=== PATIENT | male | born 1990 | race Caucasian/White ===

== ENCOUNTER 2017-11-16 21:12 | Emergency (ER) | payer OTHER, SELFPAY ==
[2017-11-16] MEDS ORDERED: KETOROLAC 30 MG/ML INJ ONE (22:43)
[2017-11-16 22:53] LABS: Absolute Monocytes 0.8 K/uL (0.1-1.3); Absolute Neutrophil 4.5 K/uL (1.8-8.0); Basophils % 0.6 % (0-1.3); Eosinophils % 2.8 % (0-4.4); Hematocrit 45.6 % (39.6-49.0); Lymphocytes % 26.4 % (15.3-44.8); MCH 28.7 pg (27.0-35.0); MCV 84.8 fL (80-100); MPV 8.6 fL (7.6-11.3); Monocytes % 10.6 % (3.3-12.3); RBC Red Blood Cell Count 5.38 M/uL (4.33-5.43)
[2017-11-16 23:12] LABS: ALT/SGPT 26 U/L (12-78); AST/SGOT 21 U/L (15-37); Albumin 3.7 g/dL (3.4-5.0); Alkaline Phosphatase 54 U/L (45-117); BUN Blood Urea Nitrogen 18 mg/dL (7-18); Bicarbonate 29 mmol/L (21-32); Bilirubin Direct < 0.1 mg/dL (0-0.2); Bilirubin Total 0.3 mg/dL (0.2-1.0); Glucose Level 79 mg/dL (74-106); Lipase 128 U/L (73-393); Potassium 3.9 mmol/L (3.5-5.1); Protein, Total 7.8 g/dL (6.4-8.2); Sodium Level 138 mmol/L (136-145)
[2017-11-16 23:50] LABS: Urine Blood NEGATIVE (NEG); Urine Glucose NEGATIVE (NEG); Urine Protein NEGATIVE (NEG); Urine Specific Gravity 1.025 (1.005-1.030)
--- NOTE | 2017-11-17 00:27 | EDPHYS ---
Physician Documentation [facility] Name: Will Hemphill Age: 27 yrs Sex: Male : 1990 Arrival Date: 11/16/2017 Time: 21:15 Bed 28 Private MD: Rohit Leyva T ED Physician Milo King HPI: 11/17 00:22 This 27 yrs old Male presents to ER via Ambulatory with complaints of pm1 Shoulder Pain. 00:22 The patient or guardian complains of pain. right scapular area. Context: The problem pm1 was sustained at home, resulted from possibly positioning while working on his car trunk with body twisted to work on the right side of the car. Onset: The symptoms/episode began/occurred 2 day(s) ago. Modifying factors: the symptoms are alleviated by OTC meds, Nsaids, The symptoms are aggravated by Flexion of trapezius muscles. Associated signs and symptoms: Pertinent negatives: abdominal pain, chest pain, numbness and tingling. nausea and vomiting. Treatment prior to arrival includes: over the counter medications, NSAIDS. The patient has not experienced similar symptoms in the past. The patient has not recently seen a physician. Patient reports pain in the area with deep breathing and occasionally with swallowing. Historical: - Allergies: 11/16 21:24 No Known Allergies; aj1 - Home Meds: 21:24 Diazepam Oral [Active]; aj1 - PMHx: 21:24 Anxiety; fractured L1; aj1 - PSHx: 21:24 Cholecystectomy; aj1 - Immunization history:: Flu vaccine is not up to date. - Social history:: Smoking status: Patient/guardian denies using tobacco. - Ebola Screening: : Patient denies travel to an Ebola-affected area in the 21 days before illness onset. ROS: 11/17 00:22 Constitutional: Negative for fever, chills, and weight loss, Eyes: Negative for injury, pm1 pain, redness, and discharge, ENT: Negative for injury, pain, and discharge, Neck: Negative for injury, pain, and swelling, Cardiovascular: Negative for chest pain, palpitations, and edema, Respiratory: Negative for shortness of breath, cough, wheezing, and pleuritic chest pain, Abdomen/GI: Negative for abdominal pain, nausea, vomiting, diarrhea, and constipation. : Negative for injury, bleeding, discharge, and swelling, MS/Extremity: Negative for injury and deformity, Skin: Negative for injury, rash, and discoloration, Neuro: Negative for headache, weakness, numbness, tingling, and seizure. Back: Positive for of the right subscapular area, Pain. Exam: 00:22 Constitutional: This is a well developed, well nourished patient who is awake, alert, pm1 and in no acute distress. Head/Face: Normocephalic, atraumatic. Neck: Trachea midline, no thyromegaly or masses palpated, and no cervical lymphadenopathy. Supple, full range of motion without nuchal rigidity, or vertebral point tenderness. No Meningismus. Chest/axilla: Normal chest wall appearance and motion. Nontender with no deformity. No lesions are appreciated. Cardiovascular: Regular rate and rhythm with a normal S1 and S2. No gallops, murmurs, or rubs. Normal PMI, no JVD. No pulse deficits. Respiratory: Lungs have equal breath sounds bilaterally, clear to auscultation and percussion. No rales, rhonchi or wheezes noted. No increased work of breathing, no retractions or nasal flaring. Abdomen/GI: Soft, non-tender, with normal bowel sounds. No distension or tympany. No guarding or rebound. No evidence of tenderness throughout. 00:22 Skin: Warm, dry with normal turgor. Normal color with no rashes, no lesions, and no evidence of cellulitis. MS/ Extremity: Pulses equal, no cyanosis. Neurovascular intact. Full, normal range of motion. 00:22 Back: ROM is normal, normal spinal alignment noted, Tenderness to right subscapular area with patient flexing trapezius muscles. 00:22 Neuro: Orientation: is normal, Motor: is normal, moves all fours, Gait: is steady, at a normal pace, without difficulty. Vital Signs: 11/16 21:24 BP 136 / 74; Pulse 68; Resp 18; Temp 98.1(TE); Pulse Ox 98% on R/A; Weight 105.23 kg aj1 (R); Height 6 ft. 3 in. (190.50 cm); Pain 06/08; 11/17 00:38 BP 124 / 73; Pulse 60; Resp 18; Pulse Ox 96% on R/A; mb3 11/16 21:24 Body Mass Index 29.00 (105.23 kg, 190.50 cm) aj1 MDM: 11/16 21:58 Patient medically screened. [facility] 11/17 00:25 Data reviewed: vital signs. Data interpreted: Pulse oximetry: on room air is 98 %. pm1 Interpretation: normal. Counseling: I had a detailed discussion with the patient and/or guardian regarding: the historical points, exam findings, and any diagnostic results supporting the discharge/admit diagnosis, lab results, the need for outpatient follow up, to return to the emergency department if symptoms worsen or persist or if there are any questions or concerns that arise at home. 11/16 22:31 Order name: Basic Metabolic Panel pm1 11/16 22:31 Order name: CBC with Diff; Complete Time: 00:16 pm1 11/16 22:31 Order name: Hepatic Function pm1 11/16 22:31 Order name: Lipase pm1 11/16 23:41 Order name: Urine Dipstick--Ancillary (enter results); Complete Time: 00:16 eb 11/16 22:31 Order name: IV Saline Lock; Complete Time: 22:44 pm1 11/16 22:31 Order name: Labs collected and sent; Complete Time: 22:44 pm1 11/16 22:31 Order name: Urine Dipstick-Ancillary (obtain specimen); Complete Time: 23:28 pm1 Administered Medications: 11/16 22:45 Drug: TORadol 30 mg Route: IVP; Site: left antecubital; mb3 11/17 00:37 Follow up: Response: No adverse reaction; Pain is decreased mb3 Disposition: 15:41 Co-signature as Attending Physician, Milo King MD I agree with the assessment and [facility] plan of care. Disposition: 11/17/17 00:26 Discharged to Home. Impression: Strain of muscle and tendon of back wall of thorax. - Condition is Stable. - Discharge Instructions: Muscle Strain. - Prescriptions for Cyclobenzaprine 10 mg Oral Tablet - take 1 tablet by ORAL route every 8 hours As needed; 30 tablet. - Medication Reconciliation Form, Thank You Letter form. - Follow up: Emergency Department; When: As needed; Reason: Worsening of condition. Follow up: Rohit Leyva MD; When: 2 - 3 days; Reason: Recheck today's complaints, Continuance of care, Re-evaluation by your physician. - Problem is new. - Symptoms have improved. Signatures: Dispatcher [employer] EDDestinee Coto RN RN aj1 Milo King MD MD cha Marinas, Patrick, APPLICATION ANALYST APPLICATION ANALYST pm1 Ganga Negro, RN RN mb3 Corrections: (The following items were deleted from the chart) 00:27 00:26 11/17/2017 00:26 Discharged to Home. Impression: Muscle spasm of back. Condition pm1 is Stable. Forms are Medication Reconciliation Form, Thank You Letter, Antibiotic Education, Prescription Opioid Use. Follow up: Emergency Department; When: As needed; Reason: Worsening of condition. Follow up: Rohit Leyva; When: 2 - 3 days; Reason: Recheck today's complaints, Continuance of care, Re-evaluation by your physician. Problem is new. Symptoms have improved. pm1 00:39 00:27 11/17/2017 00:26 Discharged to Home. Impression: Strain of muscle and tendon of mb3 back wall of thorax. Condition is Stable. Forms are Medication Reconciliation Form, Thank You Letter, Antibiotic Education, Prescription Opioid Use. Follow up: Emergency Department; When: As needed; Reason: Worsening of condition. Follow up: Rohit Leyva; When: 2 - 3 days; Reason: Recheck today's complaints, Continuance of care, Re-evaluation by your physician. Problem is new. Symptoms have improved. pm1
--- NOTE | 2017-11-17 00:27 | ER ---
Nurse's Notes [facility] Name: Will Hemphill Age: 27 yrs Sex: Male : 1990 Arrival Date: 11/16/2017 Time: 21:15 Bed 28 Private MD: Rohit Leyva T Diagnosis: Strain of muscle and tendon of back wall of thorax Presentation: 11/16 21:22 Presenting complaint: Patient states: Sharp pain the the right posterior shoulder aj1 that's worse when he takes a deep breath and swallows food since Tuesday. Denies any injury to the area. Full AROM to right shoulder. Transition of care: patient was not received from another setting of care. Onset of symptoms was November 14, 2017. Risk Assessment: Do you want to hurt yourself or someone else? Patient reports no desire to harm self or others. Initial Sepsis Screen: Does the patient meet any 2 criteria? No. Patient's initial sepsis screen is negative. Does the patient have a suspected source of infection? No. Patient's initial sepsis screen is negative. Care prior to arrival: None. 21:22 Method Of Arrival: Ambulatory aj1 21:22 Acuity: PABLO 3 aj1 Triage Assessment: 21:24 General: Appears in no apparent distress. comfortable, Behavior is calm, cooperative, aj1 appropriate for age. Pain: Complains of pain in posterior aspect of right shoulder Pain does not radiate. Pain currently is 1 out of 10 on a pain scale. at worst was 10 out of 10 on a pain scale. Quality of pain is described as sharp, Pain began 2-3 days ago. Is intermittent, Alleviated by nothing. Aggravated by swallowing and deep breathing. EENT: No signs and/or symptoms were reported regarding the EENT system. Neuro: Level of Consciousness is awake, alert, obeys commands, Oriented to person, place, time, situation, Gait is steady, Speech is normal, Facial symmetry appears normal. Cardiovascular: Patient's skin is warm and dry. Respiratory: Airway is patent Respiratory effort is even, unlabored, Respiratory pattern is regular, symmetrical, Denies cough, shortness of breath. GI: No signs and/or symptoms were reported involving the gastrointestinal system. : No signs and/or symptoms were reported regarding the genitourinary system. Derm: No signs and/or symptoms reported regarding the dermatologic system. Skin is pink, warm \T\ dry. normal. Musculoskeletal: Circulation, motion, and sensation intact. Capillary refill < 3 seconds, Range of motion: intact in all extremities, Reports shoulder pain. Historical: - Allergies: 21:24 No Known Allergies; aj1 - Home Meds: 21:24 Diazepam Oral [Active]; aj1 - PMHx: 21:24 Anxiety; fractured L1; aj1 - PSHx: 21:24 Cholecystectomy; aj1 - Immunization history:: Flu vaccine is not up to date. - Social history:: Smoking status: Patient/guardian denies using tobacco. - Ebola Screening: : Patient denies travel to an Ebola-affected area in the 21 days before illness onset. Screenin:40 Abuse screen: Denies threats or abuse. Nutritional screening: No deficits noted. mb3 Tuberculosis screening: No symptoms or risk factors identified. Fall Risk None identified. Assessment: 21:39 General: Appears in no apparent distress. comfortable, Behavior is calm, cooperative, mb3 appropriate for age. Pain: Complains of pain in right scapular area. Neuro: No deficits noted. Cardiovascular: No deficits noted. Respiratory: No deficits noted. Airway is patent Respiratory effort is even, unlabored, Respiratory pattern is regular, symmetrical, Breath sounds are clear bilaterally. GI: No deficits noted. No signs and/or symptoms were reported involving the gastrointestinal system. : No deficits noted. No signs and/or symptoms were reported regarding the genitourinary system. Derm: No deficits noted. No signs and/or symptoms reported regarding the dermatologic system. Musculoskeletal: No deficits noted. No signs and/or symptoms reported regarding the musculoskeletal system. Vital Signs: 21:24 BP 136 / 74; Pulse 68; Resp 18; Temp 98.1(TE); Pulse Ox 98% on R/A; Weight 105.23 kg aj1 (R); Height 6 ft. 3 in. (190.50 cm); Pain /; 11/17 00:38 BP 124 / 73; Pulse 60; Resp 18; Pulse Ox 96% on R/A; mb3 11/16 21:24 Body Mass Index 29.00 (105.23 kg, 190.50 cm) aj ED Course: 11/16 21:15 Patient arrived in ED. es 21:15 Rohit Leyva MD is Private Physician. es 21:23 Triage completed. aj1 21:24 Arm band placed on Patient placed in waiting room, Patient notified of wait time. aj1 21:31 Ganga Negro RN is Primary Nurse. mb3 21:42 Patient has correct armband on for positive identification. Bed in low position. Call mb3 light in reach. Side rails up X 1. 21:51 Servando Gibbs NP is PHCP. pm1 21:51 Milo King MD is Attending Physician. pm1 22:44 Inserted saline lock: 20 gauge in left antecubital area, using aseptic technique. Blood mt collected. 11/17 00:26 Rohit Leyva MD is Referral Physician. pm1 00:38 No provider procedures requiring assistance completed. IV discontinued, intact, mb3 bleeding controlled, No redness/swelling at site. Pressure dressing applied. Administered Medications: 11/16 22:45 Drug: TORadol 30 mg Route: IVP; Site: left antecubital; mb3 11/17 00:37 Follow up: Response: No adverse reaction; Pain is decreased mb3 Outcome: 00:26 Discharge ordered by MD. pm1 00:38 Discharged to home ambulatory. mb3 00:38 Condition: stable 00:38 Discharge instructions given to patient, Instructed on discharge instructions, follow up and referral plans. medication usage, Demonstrated understanding of instructions, follow-up care, medications, Prescriptions given X 1. 00:39 Patient left the ED. mb3 Signatures: Destinee Sawyer RN RN aj1 Nighat Carpenter Patrick, KIKI EXTRACTOR OPERATOR HELPER pm1 Patricia Mejía id Ganga Negro, RN RN mb3 Corrections: (The following items were deleted from the chart) 11/16 21:27 21:24 Pain: Complains of pain in posterior aspect of right shoulder Pain does not aj1 radiate. Pain Quality of pain is described as sharp, Pain began 2-3 days ago. Is intermittent, Alleviated by nothing. Aggravated by swallowing and deep breathing aj1
[2017-11-17 01:25] VITALS: TEMP 98.1
[2017-11-17 01:28] VITALS: BP 124/73; O2SAT 96
== END 2017-11-17 00:39 | disposition home or self-care (01) ==
LOC: ER 21:12
DX: S29.012A Strain of muscle and tendon of back wall of thorax, initial encounter (principal); X50.1XXA Overexertion from prolonged static or awkward postures, initial encounter; Y93.89 Activity, other specified; Y92.89 Other specified places as the place of occurrence of the external cause; Y99.8 Other external cause status
CPT/HCPCS: 36415; 80048; 80076; 81003; 83690; 85025; 96374; 99284

== ENCOUNTER 2019-01-08 16:45 | Emergency (ER) | payer SELFPAY ==
[2019-01-08] MEDS ORDERED: NA CHLORIDE 0.9% 2,000 ML ONE (17:41)
[2019-01-08] MEDS ORDERED: MORPHINE 4 MG/ML SYR ONE (17:41)
[2019-01-08] MEDS ORDERED: ONDANSETRON 4 MG/2 ML VIAL ONE ×2 (17:41→21:30)
[2019-01-08 17:52] LABS: Absolute Lymphocytes (CBC) 0.5 K/uL (0.7-4.9); Basophils % 0.1 % (0-1.3); Hematocrit 48.5 % (39.6-49.0); Lymphocytes % 5.3 % (15.3-44.8); MPV 8.7 fL (7.6-11.3)
[2019-01-08 18:13] LABS: Albumin 3.7 g/dL (3.4-5.0); Bilirubin Direct 0.1 mg/dL (0-0.2); Bilirubin Total 0.5 mg/dL (0.2-1.0); Potassium 3.9 mmol/L (3.5-5.1); Protein, Total 7.8 g/dL (6.4-8.2)
--- NOTE | 2019-01-08 19:09 | RAD REPORT ---
EXAM DESCRIPTION: RAD - Chest Single View - 01/08/2019 6:21 pm CLINICAL HISTORY: Abdominal pain, fever, abdominal distention COMPARISON: April 2016 TECHNIQUE: AP portable chest image was obtained 1821 hours . FINDINGS: Lungs are clear. Heart and vasculature are normal. No measurable pleural effusion and no p neumothorax. No acute bony abnormality seen. No acute aortic findings suspected. IMPRESSION: No acute cardiopulmonary process. No suspicious interval change.
[2019-01-08 19:18] LABS: Anisocytosis 1+; Blood Morphology Comment NOTED (NOT SEEN); Platelet Estimate ADEQ; Urine White Blood Cell Casts OK
[2019-01-08] MEDS ORDERED: NA CHLORIDE 0.9% 1,000 ML ONE (19:37)
[2019-01-08 19:55] LABS: Urine Blood NEGATIVE (NEG); Urine Glucose NEGATIVE (NEG); Urine Protein NEGATIVE (NEG); Urine pH 5.5 (5.0-7.0)
--- NOTE | 2019-01-08 20:22 | RAD REPORT ---
EXAM DESCRIPTION: CT - Abdomen Pelvis W Contrast - 01/08/2019 7:57 pm CLINICAL HISTORY: Abdominal pain, umbilical pain COMPARISON: CT imaging June 2015 TECHNIQUE: Biphasic, helical CT imaging of the abdomen and pelvis was performed following 100 ml non -ionic IV contrast. Oral contrast was given. All CT scans are performed using dose optimization technique as appropriate and may include automated exposure control or mA/KV adjustment according to patient size. FINDINGS: No suspicious findings in the lung bases. The liver, spleen, and pancreas show no suspicious findings. Cholecystectomy clips are present. No bi liary tree dilatation. Symmetric renal function is seen with no hydronephrosis or suspicious renal mass. No pyelonephritis o r acute parenchymal process. No bladder abnormalities. No adrenal abnormalities. No gastric dilatation or gastric wall thickening. Small bowel loops are not dilated. There are severa l loops of small bowel in the right mid abdomen that are prominent in size and show mild wall thicken ing. Pattern is consistent with a nonobstructive small bowel enteritis. There are few small [address] or less mesenteric lymph nodes in this region. Terminal ileum is not involved. No appendicitis fi ndings. No acute colon process. No free air, free fluid or pneumatosis. No focal inflammatory stranding. No hernia, mass or bulky lymphadenopathy. No suspicious bony findings. IMPRESSION: Small bowel enteritis pattern in the right mid abdomen. No appendicitis or emergent CT finding. No abnormality.
[2019-01-08] MEDS ORDERED: CIPROFLOXACIN 400mg IV 400 MG/200 ML BAG IV ONE (20:35)
[2019-01-08] MEDS ORDERED: metroNIDAZOLE 500 MG TABLET ONE (20:35)
--- NOTE | 2019-01-08 20:39 | ER ---
Nurse's Notes [facility] Name: Will Hemphill Age: 28 yrs Sex: Male : 1990 Arrival Date: 01/08/2019 Time: 16:51 Bed 7 Private MD: Rohit Leyva T Diagnosis: Abdominal tenderness;Diarrhea, unspecified-enteritis;Nausea Presentation: 01/08 16:52 Presenting complaint: Patient states: i started having bad stomach pain (umbilical hj area) and diarrhea; denies N/V; reports fever;. Transition of care: patient was not received from another setting of care. Onset of symptoms was January 08, 2019. Risk Assessment: Do you want to hurt yourself or someone else? Patient reports no desire to harm self or others. Initial Sepsis Screen: Does the patient meet any 2 criteria? No. Patient's initial sepsis screen is negative. Does the patient have a suspected source of infection? No. Patient's initial sepsis screen is negative. Care prior to arrival: None. 16:52 Method Of Arrival: Ambulatory 16:52 Acuity: PABLO 3 hj Historical: - Allergies: 16:54 No Known Drug Allergies; hj - Home Meds: 17:06 diazepam Oral [Active]; tw2 - PMHx: 16:54 Anxiety; fractured L1; hj - PSHx: 16:54 Cholecystectomy; hj - Immunization history:: Adult Immunizations. - Social history:: Smoking status: . - Ebola Screening: : Patient denies travel to an Ebola-affected area in the 21 days before illness onset. Screenin:06 Abuse screen: Denies threats or abuse. Nutritional screening: No deficits noted. tw2 Tuberculosis screening: No symptoms or risk factors identified. Fall Risk None identified. Assessment: 17:22 General: Appears in no apparent distress. well groomed, Behavior is calm, cooperative, tw2 appropriate for age. Pain: Complains of pain in umbilical area. Neuro: Level of Consciousness is awake, alert, obeys commands, Oriented to person, place, time, situation. Cardiovascular: Heart tones S1 S2 Patient's skin is warm and dry. Respiratory: Airway is patent Respiratory effort is even, unlabored, Respiratory pattern is regular, symmetrical, Breath sounds are clear bilaterally. GI: Bowel sounds present X 4 quads. Abd is soft X 4 quads Reports lower abdominal pain, upper abdominal pain, diarrhea, nausea, vomiting. : No signs and/or symptoms were reported regarding the genitourinary system. EENT: No signs and/or symptoms were reported regarding the EENT system. Derm: No signs and/or symptoms reported regarding the dermatologic system. Musculoskeletal: Range of motion: intact in all extremities. 18:07 Reassessment: Patient appears in no apparent distress at this time. No changes from tw2 previously documented assessment. Patient and/or family updated on plan of care and expected duration. Pain level reassessed. Patient is alert, oriented x 3, equal unlabored respirations, skin warm/dry/pink. 18:51 Reassessment: Patient appears in no apparent distress at this time. No changes from tw2 previously documented assessment. Patient and/or family updated on plan of care and expected duration. Pain level reassessed. Patient is alert, oriented x 3, equal unlabored respirations, skin warm/dry/pink. 20:38 General: Appears in no apparent distress. comfortable, well groomed, Behavior is calm, ak1 cooperative, appropriate for age. Pain: Denies pain. Neuro: Level of Consciousness is awake, alert, obeys commands, Oriented to person, place, time, situation, Moves all extremities. Gait is steady. Cardiovascular: No deficits noted. Respiratory: Airway is patent Respiratory effort is even, unlabored, Respiratory pattern is regular, symmetrical. GI: Bowel sounds present X 4 quads. Abd is soft X 4 quads Reports diarrhea, nausea. : No signs and/or symptoms were reported regarding the genitourinary system. EENT: No signs and/or symptoms were reported regarding the EENT system. Derm: No signs and/or symptoms reported regarding the dermatologic system. Musculoskeletal: Range of motion: intact in all extremities. 21:20 Reassessment: Pt reports increased nausea, provider notified, see MAR for orders. jb4 Vital Signs: 16:54 BP 138 / 66; Pulse 107; Resp 18; Temp 98.3(TE); Pulse Ox 98% on R/A; Weight 117.93 kg; hj Height 6 ft. 3 in. (190.50 cm); Pain 10/10; 18:03 BP 120 / 76; Pulse 83; Resp 17; Pulse Ox 99% on R/A; tw2 18:51 BP 128 / 79; Pulse 110; Resp 17; Pulse Ox 100% on R/A; tw2 19:30 BP 110 / 72; Pulse 109; Resp 16; Temp 98.3; Pulse Ox 100% on R/A; ak1 20:40 BP 119 / 77; Pulse 107; Resp 16; Temp 98.6; Pulse Ox 100% on R/A; Pain 0/10; ak1 16:54 Body Mass Index 32.50 (117.93 kg, 190.50 cm) ED Course: 16:51 Patient arrived in ED. ag5 16:51 Rohit Leyva MD is Private Physician. ag5 16:54 Triage completed. hj 16:54 Arm band placed on right wrist. hj 17:06 Bed in low position. Call light in reach. tw2 17:08 Milo King MD is Attending Physician. deya 17:16 Damaris Shaikh RN is Primary Nurse. tw2 17:47 Missed attempt(s): 22 gauge in right antecubital area. blood collected. tw2 17:49 Oral contrast given. nj 17:59 Initial lab(s) drawn, by me, sent to lab. Inserted saline lock: 20 gauge in right sg antecubital area, using aseptic technique. Blood collected. 18:25 Chest Single View XRAY In Process Unspecified. EDMS 19:08 Report given to ARTEMIO Weinberg - CT and urine outstanding at this time. tw2 19:57 CT completed. Patient tolerated procedure well. Patient moved back from CT. vm2 19:58 CT Abd/Pelvis - PO and IV Contrast In Process Unspecified. EDMS 20:38 Rohit Leyva MD is Referral Physician. deya 20:40 Awaiting: IV medications to infuse then pt can be discharged. ak1 20:41 No provider procedures requiring assistance completed. ak1 22:08 IV discontinued, intact, bleeding controlled, No redness/swelling at site. Pressure ak1 dressing applied. Administered Medications: 17:57 Drug: NS 0.9% 1000 ml Route: IV; Rate: 125 ml/hr; Site: right antecubital; tw2 22:09 Follow up: IV Status: Completed infusion ak1 17:58 Drug: morphine 4 mg Route: IVP; Site: right antecubital; tw2 18:30 Follow up: Response: No adverse reaction; Pain is decreased; RASS: Alert and Calm (0) tw2 17:58 Drug: Zofran 4 mg Route: IVP; Site: right antecubital; tw2 18:05 Follow up: Response: No adverse reaction tw2 17:59 Drug: NS 0.9% 1000 ml Route: IV; Rate: 1 bolus; Site: right antecubital; tw2 19:38 Follow up: IV Status: Completed infusion; IV Intake: 1000ml ak1 19:38 Drug: NS 0.9% 1000 ml Route: IV; Rate: 1 bolus; Site: right antecubital; ak1 20:37 Follow up: IV Status: Completed infusion; IV Intake: 1000ml ak1 20:37 Drug: Cipro 400 mg Volume: 200 ml; Route: IVPB; Infused Over: 60 mins; Site: right ak1 antecubital; 21:39 Follow up: Response: No adverse reaction; IV Status: Completed infusion; IV Intake: jb4 200ml 20:37 Drug: Flagyl 500 mg Route: PO; ak1 20:38 Follow up: Response: No adverse reaction ak1 21:34 Drug: Zofran 4 mg Route: IVP; Site: right antecubital; jb4 22:09 Follow up: Response: No adverse reaction; Nausea is decreased ak1 Intake: 19:38 IV: 1000ml; Total: 1000ml. ak1 20:37 IV: 1000ml; Total: 2000ml. ak1 21:39 IV: 200ml; Total: 2200ml. jb4 Outcome: 20:38 Discharge ordered by . deya 22:08 Discharged to home ambulatory, with family. ak1 22:08 Condition: good 22:08 Discharge instructions given to patient, family, Instructed on discharge instructions, follow up and referral plans. no drinking with medication, no driving heavy equipment, medication usage, Demonstrated understanding of instructions, follow-up care, medications, Prescriptions given X 4. 22:08 Patient left the ED. ak1 Signatures: Dispatcher [employer] EDMS Omar Camp RN RN sg Anderson, Corey, MD MD cha Krenek, Amber RN RN ak1 Demarco Medina RN RN hj Wise, Tara, RN RN tw2 Saeid Neff RN RN jb4 Jacinto Olivas Victoria Blade Morgan [facility] Corrections: (The following items were deleted from the chart) 16:55 16:54 Pulse 107bpm; Resp 18bpm; Pulse Ox 98% RA; Temp 98.3F Temporal; 117.93 kg; Height hj 6 ft. 3 in.; BMI: 32.5; Pain 03/08; hj
--- NOTE | 2019-01-08 20:40 | EDPHYS ---
Physician Documentation [facility] Name: Will Hemphill Age: 28 yrs Sex: Male : 1990 Arrival Date: 01/08/2019 Time: 16:51 Bed 7 Private MD: Rohit Leyva T ED Physician Milo King HPI: 01/08 17:34 This 28 yrs old Male presents to ER via Ambulatory with complaints of deya Abdominal Pain, Nausea. 17:34 The patient presents to the emergency department with nausea, diarrhea, abdominal pain, deya of the right upper quadrant, left upper quadrant, right lower quadrant and left lower quadrant. Onset: The symptoms/episode began/occurred this morning, today. Possible causes: unknown. The symptoms are aggravated by nothing. The symptoms are alleviated by nothing. Associated signs and symptoms: The patient has no apparent associated signs or symptoms. Severity of symptoms: At their worst the symptoms were moderate in the emergency department the symptoms are unchanged. The patient has not experienced similar symptoms in the past. Historical: - Allergies: 16:54 No Known Drug Allergies; hj - Home Meds: 17:06 diazepam Oral [Active]; tw2 - PMHx: 16:54 Anxiety; fractured L1; hj - PSHx: 16:54 Cholecystectomy; hj - Immunization history:: Adult Immunizations. - Social history:: Smoking status: . - Ebola Screening: : Patient denies travel to an Ebola-affected area in the 21 days before illness onset. ROS: 17:34 Constitutional: Negative for fever, chills, and weight loss, Eyes: Negative for injury, deya pain, redness, and discharge, ENT: Negative for injury, pain, and discharge, Neck: Negative for injury, pain, and swelling, Cardiovascular: Negative for chest pain, palpitations, and edema, Respiratory: Negative for shortness of breath, cough, wheezing, and pleuritic chest pain, Back: Negative for injury and pain, : Negative for injury, bleeding, discharge, and swelling, MS/Extremity: Negative for injury and deformity, Skin: Negative for injury, rash, and discoloration, Neuro: Negative for headache, weakness, numbness, tingling, and seizure, Psych: Negative for depression, anxiety, suicide ideation, homicidal ideation, and hallucinations, Allergy/Immunology: Negative for hives, rash, and allergies, Endocrine: Negative for neck swelling, polydipsia, polyuria, polyphagia, and marked weight changes, Hematologic/Lymphatic: Negative for swollen nodes, abnormal bleeding, and unusual bruising. 17:34 Abdomen/GI: Positive for abdominal pain, nausea, diarrhea, of the suprapubic area, right upper quadrant, left upper quadrant, right lower quadrant and left lower quadrant. Exam: 17:34 Constitutional: This is a well developed, well nourished patient who is awake, alert, deya and in no acute distress. Head/Face: Normocephalic, atraumatic. Eyes: Pupils equal round and reactive to light, extra-ocular motions intact. Lids and lashes normal. Conjunctiva and sclera are non-icteric and not injected. Cornea within normal limits. Periorbital areas with no swelling, redness, or edema. ENT: Nares patent. No nasal discharge, no septal abnormalities noted. Tympanic membranes are normal and external auditory canals are clear. Oropharynx with no redness, swelling, or masses, exudates, or evidence of obstruction, uvula midline. Mucous membranes moist. Neck: Trachea midline, no thyromegaly or masses palpated, and no cervical lymphadenopathy. Supple, full range of motion without nuchal rigidity, or vertebral point tenderness. No Meningismus. Chest/axilla: Normal chest wall appearance and motion. Nontender with no deformity. No lesions are appreciated. Cardiovascular: Regular rate and rhythm with a normal S1 and S2. No gallops, murmurs, or rubs. Normal PMI, no JVD. No pulse deficits. Respiratory: Lungs have equal breath sounds bilaterally, clear to auscultation and percussion. No rales, rhonchi or wheezes noted. No increased work of breathing, no retractions or nasal flaring. Back: No spinal tenderness. No costovertebral tenderness. Full range of motion. Skin: Warm, dry with normal turgor. Normal color with no rashes, no lesions, and no evidence of cellulitis. MS/ Extremity: Pulses equal, no cyanosis. Neurovascular intact. Full, normal range of motion. Neuro: Awake and alert, GCS 15, oriented to person, place, time, and situation. Cranial nerves II-XII grossly intact. Motor strength 5/5 in all extremities. Sensory grossly intact. Cerebellar exam normal. Normal gait. Psych: Awake, alert, with orientation to person, place and time. Behavior, mood, and affect are within normal limits. 17:34 Abdomen/GI: Inspection: abdomen appears normal, Bowel sounds: normal, Palpation: moderate abdominal tenderness, in the right upper quadrant, left upper quadrant, right lower quadrant and left lower quadrant, Liver: no appreciated palpable abnormalities, Hernia: not appreciated. Vital Signs: 16:54 BP 138 / 66; Pulse 107; Resp 18; Temp 98.3(TE); Pulse Ox 98% on R/A; Weight 117.93 kg; hj Height 6 ft. 3 in. (190.50 cm); Pain 10/10; 18:03 BP 120 / 76; Pulse 83; Resp 17; Pulse Ox 99% on R/A; tw2 18:51 BP 128 / 79; Pulse 110; Resp 17; Pulse Ox 100% on R/A; tw2 19:30 BP 110 / 72; Pulse 109; Resp 16; Temp 98.3; Pulse Ox 100% on R/A; ak1 20:40 BP 119 / 77; Pulse 107; Resp 16; Temp 98.6; Pulse Ox 100% on R/A; Pain 0/10; ak1 16:54 Body Mass Index 32.50 (117.93 kg, 190.50 cm) hj MDM: 17:08 Patient medically screened. [facility] 17:34 Data reviewed: vital signs, nurses notes, lab test result(s), EKG, radiologic studies, [facility] CT scan, plain films. 01/08 17:34 Order name: Basic Metabolic Panel [facility] 01/08 17:34 Order name: CBC with Diff [facility] 01/08 17:34 Order name: Creatinine for Radiology; Complete Time: 18:29 [facility] 01/08 17:34 Order name: Hepatic Function; Complete Time: 18:29 [facility] 01/08 17:34 Order name: Lipase; Complete Time: 18:29 [facility] 01/08 17:34 Order name: Urine Culture [facility] 01/08 17:34 Order name: Chest Single View XRAY; Complete Time: 19:19 [facility] 01/08 17:34 Order name: CT Abd/Pelvis - PO and IV Contrast; Complete Time: 20:25 [facility] 01/08 17:36 Order name: Basic Metabolic Panel; Complete Time: 18:29 [facility] 01/08 17:36 Order name: CBC with Automated Diff; Complete Time: 19:20 [facility] 01/08 18:11 Order name: CBC Smear Scan; Complete Time: 19:20 [facility] 01/08 19:46 Order name: Urine Dipstick--Ancillary (enter results); Complete Time: 20:25 ag4 01/08 17:34 Order name: IV Saline Lock; Complete Time: 17:59 deya 01/08 17:34 Order name: Labs collected and sent; Complete Time: 17:48 deya 01/08 17:34 Order name: Urine Dipstick-Ancillary (obtain specimen); Complete Time: 19:27 [facility] Administered Medications: 17:57 Drug: NS 0.9% 1000 ml Route: IV; Rate: 125 ml/hr; Site: right antecubital; tw2 22:09 Follow up: IV Status: Completed infusion ak1 17:58 Drug: morphine 4 mg Route: IVP; Site: right antecubital; tw2 18:30 Follow up: Response: No adverse reaction; Pain is decreased; RASS: Alert and Calm (0) tw2 17:58 Drug: Zofran 4 mg Route: IVP; Site: right antecubital; tw2 18:05 Follow up: Response: No adverse reaction tw2 17:59 Drug: NS 0.9% 1000 ml Route: IV; Rate: 1 bolus; Site: right antecubital; tw2 19:38 Follow up: IV Status: Completed infusion; IV Intake: 1000ml ak1 19:38 Drug: NS 0.9% 1000 ml Route: IV; Rate: 1 bolus; Site: right antecubital; ak1 20:37 Follow up: IV Status: Completed infusion; IV Intake: 1000ml ak1 20:37 Drug: Cipro 400 mg Volume: 200 ml; Route: IVPB; Infused Over: 60 mins; Site: right ak1 antecubital; 21:39 Follow up: Response: No adverse reaction; IV Status: Completed infusion; IV Intake: jb4 200ml 20:37 Drug: Flagyl 500 mg Route: PO; ak1 20:38 Follow up: Response: No adverse reaction ak1 21:34 Drug: Zofran 4 mg Route: IVP; Site: right antecubital; jb4 22:09 Follow up: Response: No adverse reaction; Nausea is decreased ak1 Disposition: 01/08/19 20:38 Discharged to Home. Impression: Abdominal tenderness, Diarrhea, unspecified - enteritis, Nausea. - Condition is Stable. - Discharge Instructions: Abdominal Pain, Adult, Diarrhea, Adult, Nausea and Vomiting, Adult, Nausea, Adult, Abdominal Pain, Adult, [id number], Diarrhea, Adult, [id number]. - Prescriptions for Bentyl 20 mg Oral Tablet - take 1 tablet by ORAL route every 6 hours As needed; 20 tablet. Flagyl 500 mg Oral Tablet - take 1 tablet by ORAL route every 8 hours for 7 days; 21 tablet. Zofran 4 mg Oral Tablet - take 1 tablet by ORAL route every 12 hours As needed; 20 tablet. Cipro 500 mg Oral Tablet - take 1 tablet by ORAL route every 12 hours for 7 days; 14 tablet. - Medication Reconciliation Form, Thank You Letter, Antibiotic Education, Prescription Opioid Use form. - Follow up: Rohit Leyva; When: 2 - 3 days; Reason: Recheck today's complaints, Continuance of care, Re-evaluation by your physician. - Problem is new. - Symptoms have improved. Signatures: Dispatcher [employer] EDMS Milo King MD MD cha Krenek, Amber, RN RN ak1 Demarco Medina, RN RN hj Damaris Shaikh, RN RN tw2 Saeid Neff, RN RN jb4 Corrections: (The following items were deleted from the chart) 22:08 20:38 01/08/2019 20:38 Discharged to Home. Impression: Abdominal tenderness; Diarrhea, ak1 unspecified - enteritis; Nausea. Condition is Stable. Discharge Instructions: Abdominal Pain, Adult, Diarrhea, Adult, Nausea and Vomiting, Adult, Nausea, Adult, Abdominal Pain, Adult, [id number], Diarrhea, Adult, [id number]. Prescriptions for Bentyl 20 mg Oral Tablet - take 1 tablet by ORAL route every 6 hours As needed; 20 tablet, Flagyl 500 mg Oral Tablet - take 1 tablet by ORAL route every 8 hours for 7 days; 21 tablet, Zofran 4 mg Oral Tablet - take 1 tablet by ORAL route every 12 hours As needed; 20 tablet, Cipro 500 mg Oral Tablet - take 1 tablet by ORAL route every 12 hours for 7 days; 14 tablet. and Forms are Medication Reconciliation Form, Thank You Letter, Antibiotic Education, Prescription Opioid Use. Follow up: Rohit Leyva; When: 2 - 3 days; Reason: Recheck today's complaints, Continuance of care, Re-evaluation by your physician. Problem is new. Symptoms have improved. deya
[2019-01-09 01:48] VITALS: O2SAT 100
[2019-01-09 01:50] VITALS: BP 119/77; TEMP 98.6
== END 2019-01-08 22:08 | disposition home or self-care (01) ==
LOC: ER 16:45
DX: R19.7 Diarrhea, unspecified (principal); R11.0 Nausea; F41.9 Anxiety disorder, unspecified
CPT/HCPCS: 36415; 71045; 74177; 80048; 80076; 81003; 83690; 85025; 87086; 87088; 96361; 96365; 96375; 99284; J0744; J2405; J7030; Q9967

== ENCOUNTER 2020-03-25 17:19 | Emergency (ER) | payer SELFPAY ==
[2020-03-25 19:59] LABS: Absolute Lymphocytes (CBC) 1.9 K/uL (0.7-4.9); Basophils % 0.8 % (0-1.3); Lymphocytes % 29.4 % (15.3-44.8); MPV 8.9 fL (7.6-11.3); RBC Red Blood Cell Count 5.59 M/uL (4.33-5.43)
[2020-03-25] MEDS ORDERED: NA CHLORIDE 0.9% 2,000 ML ONE (19:59)
[2020-03-25 20:09] LABS: Urine Blood NEGATIVE (NEG); Urine Glucose NEGATIVE (NEG); Urine Protein NEGATIVE (NEG); Urine Specific Gravity 1.015 (1.005-1.030)
[2020-03-25 20:14] LABS: ALT/SGPT 26 U/L (12-78); AST/SGOT 17 U/L (15-37); Alkaline Phosphatase 56 U/L (45-117); BUN Blood Urea Nitrogen 12 mg/dL (7-18); Bicarbonate 27 mmol/L (21-32); Bilirubin Direct < 0.1 mg/dL (0-0.2); Bilirubin Total 0.3 mg/dL (0.2-1.0); Glucose Level 80 mg/dL (74-106); Lipase 109 U/L (73-393); Potassium 3.9 mmol/L (3.5-5.1); Protein, Total 8.3 g/dL (6.4-8.2); Sodium Level 141 mmol/L (136-145)
--- NOTE | 2020-03-25 20:24 | RAD REPORT ---
EXAM DESCRIPTION: CTAbdomen Pelvis W Contrast - 03/25/2020 8:10 pm CLINICAL HISTORY: Abdominal pain. ABD PAIN COMPARISON: Abdomen Pelvis W Contrast dated 01/08/2019; CT ABD PELVIS W CONTRAST dated 07/26/2015 TECHNIQUE: Biphasic CT imaging of the abdomen and pelvis was performed with 100 ml non-ionic IV cont rast. All CT scans are performed using dose optimization technique as appropriate and may include automated exposure control or mA/KV adjustment according to patient size. FINDINGS: The lung bases are clear.Cholecystectomy clips. The liver, spleen, pancreas, adrenal glands and kidneys are within normal limits. No bowel obstruction, free air, free fluid or abscess. The appendix is normal. No evidence of signi ficant lymphadenopathy. No suspicious bony findings. IMPRESSION: No acute intra-abdominal or pelvic finding.
--- NOTE | 2020-03-25 20:55 | EDPHYS ---
Physician Documentation [facility] Name: Will Hemphill Age: 29 yrs Sex: Male : 1990 Arrival Date: 03/25/2020 Time: 17:25 Bed 17 Private MD: ED Physician Konrad Hanley HPI: 03/25 19:38 This 29 yrs old Male presents to ER via Ambulatory with complaints of pkl Abdominal Pain, Back Pain. 19:38 The patient presents with pain that is acute. pkl 19:38 The patient presents with abdominal pain in the upper abdomen. Onset: The pkl symptoms/episode began/occurred today. The symptoms do not radiate. Associated signs and symptoms: Pertinent positives: diarrhea, nausea. Patient said he has been having abdominal pain off and on for 6 months. Historical: - Allergies: 17:49 No Known Allergies; ca1 - Home Meds: 17:49 diazepam 10 mg oral tab 1 tab as needed [Active]; dicyclomine 20 mg Oral tab 1 tab ca1 twice a day [Active]; - PMHx: 17:49 Anxiety; fractured L1; ca1 - PSHx: 17:49 Cholecystectomy; ca1 - Immunization history:: Adult Immunizations up to date, Flu vaccine is not up to date. It has been more than one year since last vaccine. - Social history:: Smoking status: Patient denies any tobacco usage or history of. ROS: 19:38 Eyes: Negative for injury, pain, redness, and discharge, ENT: Negative for injury, pkl pain, and discharge, Neck: Negative for injury, pain, and swelling, Cardiovascular: Negative for chest pain, palpitations, and edema, Respiratory: Negative for shortness of breath, cough, wheezing, and pleuritic chest pain. 19:38 Abdomen/GI: Positive for abdominal pain, nausea, diarrhea, of the right upper quadrant and left upper quadrant. 19:38 Back: Negative for acute changes. 19:38 : Positive for urinary symptoms, urinary frequency. 19:38 MS/extremity: Negative for acute changes. 19:38 Skin: Negative for rash. 19:38 Neuro: Negative for altered mental status. Exam: 19:38 Head/Face: Normocephalic, atraumatic. Eyes: Pupils equal round and reactive to light, pkl extra-ocular motions intact. Lids and lashes normal. Conjunctiva and sclera are non-icteric and not injected. Cornea within normal limits. Periorbital areas with no swelling, redness, or edema. ENT: Nares patent. No nasal discharge, no septal abnormalities noted. Tympanic membranes are normal and external auditory canals are clear. Oropharynx with no redness, swelling, or masses, exudates, or evidence of obstruction, uvula midline. Mucous membranes moist. Neck: Trachea midline, no thyromegaly or masses palpated, and no cervical lymphadenopathy. Supple, full range of motion without nuchal rigidity, or vertebral point tenderness. No Meningismus. Chest/axilla: Normal chest wall appearance and motion. Nontender with no deformity. No lesions are appreciated. Cardiovascular: Regular rate and rhythm with a normal S1 and S2. No gallops, murmurs, or rubs. Normal PMI, no JVD. No pulse deficits. Respiratory: Lungs have equal breath sounds bilaterally, clear to auscultation and percussion. No rales, rhonchi or wheezes noted. No increased work of breathing, no retractions or nasal flaring. Back: No spinal tenderness. No costovertebral tenderness. Full range of motion. Skin: Warm, dry with normal turgor. Normal color with no rashes, no lesions, and no evidence of cellulitis. MS/ Extremity: Pulses equal, no cyanosis. Neurovascular intact. Full, normal range of motion. Neuro: Awake and alert, GCS 15, oriented to person, place, time, and situation. Cranial nerves II-XII grossly intact. Motor strength 5/5 in all extremities. Sensory grossly intact. Cerebellar exam normal. Normal gait. 19:38 Abdomen/GI: Bowel sounds: normal, Palpation: soft, in the right upper quadrant and left upper quadrant, mild abdominal tenderness. Vital Signs: 17:43 BP 143 / 87; Pulse 82; Resp 16 S; Temp 97.3(TE); Pulse Ox 99% on R/A; Weight 117.93 kg ca1 (R); Height 6 ft. 3 in. (190.50 cm) (R); Pain 4/10; 20:20 BP 130 / 78; Pulse 80; Resp 18; Temp 98; Pulse Ox 100% on R/A; mg2 21:15 BP 134 / 78; Pulse 80; Resp 18; Temp 98; Pulse Ox 100% on R/A; Pain 0/10; mg2 17:43 Body Mass Index 32.50 (117.93 kg, 190.50 cm) ca1 MDM: 19:23 Patient medically screened. pkl 20:50 Data reviewed: vital signs, nurses notes, lab test result(s), radiologic studies, CT pkl scan. ED course: Discussed lab and CT Scans result with patient. Advised to follow up with [facility] specialist for further evaluations. Patient understood instructions. 03/25 18:07 Order name: Glucose, Ancillary Testing; Complete Time: 20:41 EDMS 03/25 18:57 Order name: Urine Dipstick--Ancillary (enter results); Complete Time: 20:41 bd 03/25 19:31 Order name: Basic Metabolic Panel; Complete Time: 20:41 mg2 03/25 19:31 Order name: CBC with Diff; Complete Time: 20:41 mg2 03/25 19:31 Order name: Hepatic Function; Complete Time: 20:41 mg2 03/25 19:31 Order name: Lipase; Complete Time: 20:41 mg2 03/25 19:31 Order name: IV Saline Lock; Complete Time: 19:44 mg2 03/25 19:31 Order name: Labs collected and sent; Complete Time: 19:44 mg2 03/25 19:31 Order name: Urine Dipstick-Ancillary (obtain specimen); Complete Time: 19:44 mg2 03/25 19:37 Order name: CT Abd/Pelvis - IV Contrast Only; Complete Time: 20:41 pkl Administered Medications: 19:52 Drug: NS 0.9% 1000 ml Route: IV; Rate: 1 bolus; Site: right antecubital; mg2 21:20 Not Given (Physician Discretion): NS 0.9% 1000 ml IV at 125 ml/hr continuous mg2 Disposition: 03/25/20 20:54 Discharged to Home. Impression: Addominal pain. - Condition is Stable. - Medication Reconciliation Form, Thank You Letter, Antibiotic Education, Prescription Opioid Use form. - Follow up: Private Physician; When: 1 week; Reason: Re-evaluation by your physician. Signatures: Dispatcher [employer] EDND Konrad Hanley MD MD pkl Adria Oliver RN RN mg2 Dolores Mullins RN RN ca1 Corrections: (The following items were deleted from the chart) 21:26 20:54 03/25/2020 20:54 Discharged to Home. Impression: Addominal pain. Condition is mg2 Stable. Forms are Medication Reconciliation Form, Thank You Letter, Antibiotic Education, Prescription Opioid Use. Follow up: Private Physician; When: 1 week; Reason: Re-evaluation by your physician. pkl
--- NOTE | 2020-03-25 20:55 | ER ---
Nurse's Notes [facility] Name: Will Hemphill Age: 29 yrs Sex: Male : 1990 Arrival Date: 03/25/2020 Time: 17:25 Bed 17 Private MD: Diagnosis: Addominal pain Presentation: 03/25 17:43 Chief complaint: Patient states: Started around August 2019, lower abdominal pain and on ca1 and off diarrhea. But today, abdominal pain has gotten worse and now at the upper quadrants and epigastric area, nausea and tightness of the throat with difficulty swallowing. Reports increased thirst, urinary frequency and urgency x 1 month. Denies burning with urination. Denies fever. R lower back pain started Tuesday. Coronavirus screen: Client denies travel out of the [place] in the last 14 days. nausea, Client presents with at least one sign or symptom that may indicate coronavirus-19. Standard/surgical mask placed on the client. Provider contacted for isolation considerations. The client denies any previous COVID testing. Ebola Screen: Patient negative for fever greater than or equal to 101.5 degrees Fahrenheit, and additional compatible Ebola Virus Disease symptoms Patient denies exposure to infectious person. Patient denies travel to an Ebola-affected area in the 21 days before illness onset. No symptoms or risks identified at this time. Initial Sepsis Screen: Does the patient meet any 2 criteria? No. Patient's initial sepsis screen is negative. Does the patient have a suspected source of infection? No. Patient's initial sepsis screen is negative. Risk Assessment: Do you want to hurt yourself or someone else? Patient reports no desire to harm self or others. Onset of symptoms. 17:43 Method Of Arrival: Ambulatory ca1 17:43 Acuity: PABLO 3 ca1 Historical: - Allergies: 17:49 No Known Allergies; ca1 - Home Meds: 17:49 diazepam 10 mg oral tab 1 tab as needed [Active]; dicyclomine 20 mg Oral tab 1 tab ca1 twice a day [Active]; - PMHx: 17:49 Anxiety; fractured L1; ca1 - PSHx: 17:49 Cholecystectomy; ca1 - Immunization history:: Adult Immunizations up to date, Flu vaccine is not up to date. It has been more than one year since last vaccine. - Social history:: Smoking status: Patient denies any tobacco usage or history of. Screenin:10 Abuse screen: Denies threats or abuse. Denies injuries from another. Abuse screen: mg2 Denies threats or abuse. Nutritional screening: No deficits noted. Tuberculosis screening: No symptoms or risk factors identified. Fall Risk IV access (20 points). Assessment: 19:45 General: Appears in no apparent distress. comfortable, Behavior is calm, cooperative. mg2 Pain: Complains of pain in back and abdomen. Neuro: Level of Consciousness is awake, alert, obeys commands, Oriented to person, place, time, situation. Cardiovascular: Capillary refill < 3 seconds Patient's skin is warm and dry. Respiratory: Airway is patent Respiratory effort is even, unlabored, Respiratory pattern is regular, symmetrical. GI: Bowel sounds present X 4 quads. Abd is soft Reports lower abdominal pain, diarrhea. : No signs and/or symptoms were reported regarding the genitourinary system. EENT: No signs and/or symptoms were reported regarding the EENT system. Derm: Skin is intact, is healthy with good turgor, Skin is pink, warm \T\ dry. normal. Musculoskeletal: Circulation, motion, and sensation intact. Capillary refill < 3 seconds. Vital Signs: 17:43 BP 143 / 87; Pulse 82; Resp 16 S; Temp 97.3(TE); Pulse Ox 99% on R/A; Weight 117.93 kg ca1 (R); Height 6 ft. 3 in. (190.50 cm) (R); Pain 4/10; 20:20 BP 130 / 78; Pulse 80; Resp 18; Temp 98; Pulse Ox 100% on R/A; mg2 21:15 BP 134 / 78; Pulse 80; Resp 18; Temp 98; Pulse Ox 100% on R/A; Pain 0/10; mg2 17:43 Body Mass Index 32.50 (117.93 kg, 190.50 cm) ca1 ED Course: 17:25 Patient arrived in ED. mr 17:48 Triage completed. ca1 17:49 Arm band placed on right wrist. ca1 19:23 Konrad Hanley MD is Attending Physician. pkl 19:30 Adria Oliver, RN is Primary Nurse. mg2 19:40 Radiology exam delayed due to IV insertion attempt and/or patient not having vm2 appropriate IV at this time. 19:46 Inserted saline lock: 20 gauge in right antecubital area, using aseptic technique. dh4 Blood collected. 20:10 CT Abd/Pelvis - IV Contrast Only In Process Unspecified. EDMS 20:11 Patient has correct armband on for positive identification. mg2 20:11 No provider procedures requiring assistance completed. mg2 21:20 IV discontinued, intact, bleeding controlled, No redness/swelling at site. Pressure mg2 dressing applied. Administered Medications: 19:52 Drug: NS 0.9% 1000 ml Route: IV; Rate: 1 bolus; Site: right antecubital; mg2 21:20 Not Given (Physician Discretion): NS 0.9% 1000 ml IV at 125 ml/hr continuous mg2 Outcome: 20:54 Discharge ordered by . pkalexandra 21:25 Discharged to home ambulatory. mg2 21:25 Condition: stable 21:25 Discharge instructions given to patient, family, Instructed on discharge instructions, follow up and referral plans. Demonstrated understanding of instructions, follow-up care. 21:26 Patient left the ED. mg2 Signatures: Dispatcher [employer] EDMS Konrad Hanley MD MD pkl ByrdSelena mr Kendrick, Yari [facility] Adria Oliver, RN RN mg2 Dolores Mullins RN RN ca1 Gee Reynoso 4
[2020-03-25 21:37] VITALS: BP 143/87; TEMP 97.3; O2SAT 99
== END 2020-03-25 21:26 | disposition home or self-care (01) ==
LOC: ER 17:19
DX: R10.10 Upper abdominal pain, unspecified (principal); R19.7 Diarrhea, unspecified; F41.9 Anxiety disorder, unspecified
CPT/HCPCS: 36415; 74177; 80048; 80076; 81003; 82565; 82947; 83690; 85025; 99284; J7030; Q9967

== ENCOUNTER 2020-11-18 19:17 | Emergency (ER) | payer SELFPAY ==
--- OUTSIDE RECORDS SUMMARY | 2020-11-18 19:20 | XMS REPORT | Continuity of Care Document ---
:1990 Author Organization [facility] t Address 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 Allergies, Adverse Reactions, Alerts This patient has no known allergies or adverse reactions. Medications This patient has no known medications. Procedures This patient has no known procedures. Encounters Start End Encounter Admission Attending Care Care Encounter Source Date/Time Date/Time Type Type Clinicians Facility Department ID 2020-11-13 2020-11-13 Patient Stephon, [facility] [id number] 00:00:00 00:00:00 Secure [place] [id number] [place] [id number] 2020-10-06 2020-10-06 Patient ROBSON SzymanskiIT [id number] 00:00:00 00:00:00 Secure [facility] [id number] [facility] [id number] 2020-09-18 2020-09-18 Office ALEXANDER Szymanski [id number] 14:11:09 14:39:36 Visit [facility] [id number] [place] [id number] Results This patient has no known results.
[2020-11-18 20:06] LABS: Absolute Lymphocytes (CBC) 1.9 K/uL (0.7-4.9); Basophils % 0.7 % (0-1.3); Hematocrit 42.6 % (39.6-49.0); Lymphocytes % 31.7 % (15.3-44.8); MPV 8.6 fL (7.6-11.3); RBC Red Blood Cell Count 5.02 M/uL (4.33-5.43)
[2020-11-18 20:11] LABS: Protime INR 1.11
--- NOTE | 2020-11-18 20:35 | RAD REPORT ---
EXAM DESCRIPTION: RAD - Chest Single View - 11/18/2020 8:27 pm CLINICAL HISTORY: CHEST PAIN COMPARISON: Portable December 2018 TECHNIQUE: AP portable chest image was obtained 11/18/2020 8:27 pm . FINDINGS: Lungs are clear. Heart and vasculature are normal. No measurable pleural effusion and no p neumothorax. No acute bony abnormality seen. No acute aortic findings suspected. IMPRESSION: No acute cardiopulmonary process. No significant change from comparison study.
[2020-11-18 20:56] LABS: ALT/SGPT 26 U/L (12-78); AST/SGOT 16 U/L (15-37); Albumin 3.7 g/dL (3.4-5.0); Alkaline Phosphatase 54 U/L (45-117); BUN Blood Urea Nitrogen 12 mg/dL (7-18); Bicarbonate 26 mmol/L (21-32); Bilirubin Direct 0.1 mg/dL (0-0.2); Bilirubin Total 0.3 mg/dL (0.2-1.0); Glucose Level 111 mg/dL (74-106); Magnesium 1.9 mg/dL (1.8-2.4); NT PRO-BNP 21 pg/mL (<125); Potassium 3.8 mmol/L (3.5-5.1); Protein, Total 7.6 g/dL (6.4-8.2); Sodium Level 141 mmol/L (136-145); Troponin (Emerg Dept Use Only) < 0.02 ng/mL (0.0-0.045)
--- NOTE | 2020-11-18 22:49 | ER ---
Nurse's Notes [facility] Name: Will Hemphill Age: 30 yrs Sex: Male : 1990 Arrival Date: 11/18/2020 Time: 19:20 Bed 18 Private MD: Diagnosis: Chest pain, unspecified;Cervical Strain Presentation: 11/18 19:27 Chief complaint: Patient states: Chest pain X 1 month. Tingling in left arm began today ld1 at 1430. Coronavirus screen: At this time, the client does not indicate any symptoms associated with coronavirus-19. Ebola Screen: No symptoms or risks identified at this time. Initial Sepsis Screen: Does the patient meet any 2 criteria? No. Patient's initial sepsis screen is negative. Does the patient have a suspected source of infection? No. Patient's initial sepsis screen is negative. Risk Assessment: Do you want to hurt yourself or someone else? Patient reports no desire to harm self or others. Onset of symptoms was November 18, 2020. 19:27 Method Of Arrival: Ambulatory ld1 19:27 Acuity: PABLO 3 ld1 Triage Assessment: 19:31 General: Appears in no apparent distress. comfortable, Behavior is calm, cooperative, ld1 appropriate for age. Pain: Denies pain. EENT: No signs and/or symptoms were reported regarding the EENT system. Neuro: Level of Consciousness is awake, alert, obeys commands, Oriented to person, place, time, situation, Appropriate for age. Cardiovascular: Capillary refill < 3 seconds Patient's skin is warm and dry. Respiratory: Airway is patent Respiratory effort is even, unlabored, Respiratory pattern is regular, symmetrical. GI: Abdomen is round non-distended. Historical: - Allergies: 19:31 No Known Allergies; ld1 - Home Meds: 19:31 omeprazole 40 mg oral cpDR [Active]; Cholestyramine Light 4 gram oral powd [Active]; ld1 diazepam 10 mg Oral tab 1 tab as needed [Active]; - PMHx: 19:31 Irritable bowel syndrome; ld1 - Immunization history:: Adult Immunizations up to date. - Social history:: Smoking status: Patient denies any tobacco usage or history of. Screenin:06 Abuse screen: Denies threats or abuse. Nutritional screening: No deficits noted. ap3 Tuberculosis screening: No symptoms or risk factors identified. Fall Risk None identified. Assessment: 20:04 General: Appears in no apparent distress. comfortable, Behavior is calm, cooperative, ap3 appropriate for age. Pain: Complains of pain in anterior aspect of left upper chest Pain radiates to left forearm Pain currently is 4 out of 10 on a pain scale. Quality of pain is described as crampy, Pain began 2-3 weeks ago Is intermittent. Neuro: Level of Consciousness is awake, alert, obeys commands, Oriented to person, place, time, situation, Appropriate for age. Cardiovascular: Reports chest pain, Denies shortness of breath, Capillary refill < 3 seconds. Cardiovascular: Rhythm is regular. Respiratory: Airway is patent Respiratory effort is even, unlabored, Respiratory pattern is regular, symmetrical. GI: No signs and/or symptoms were reported involving the gastrointestinal system. : No signs and/or symptoms were reported regarding the genitourinary system. 20:15 General: patient was provided education and specimen cup on clean catch collection for ap3 urine. patient verbalized understanding. . 21:40 Reassessment: Patient and/or family updated on plan of care and expected duration. Pain ap3 level reassessed. Patient is alert, oriented x 3, equal unlabored respirations, skin warm/dry/pink. Vital Signs: 19:27 BP 126 / 72; Pulse 55; Resp 18; Temp 97.8; Pulse Ox 97% ; Weight 113.4 kg; Height 6 ft. ld1 3 in. (190.50 cm); Pain 4/10; 20:48 BP 120 / 70; Pulse 64; Resp 18; Pulse Ox 100% on R/A; ap3 21:40 BP 123 / 74; Pulse 65; Resp 17; Pulse Ox 100% on R/A; ap3 19:27 Body Mass Index 31.25 (113.40 kg, 190.50 cm) ld1 ED Course: 19:20 Patient arrived in ED. bp1 19:29 Triage completed. ld1 19:31 Arm band placed on left wrist. ld1 19:33 Candice Callejas, ARTEMIO is Primary Nurse. ap3 19:34 Vinny Cancino MD is Attending Physician. mh7 19:40 Inserted saline lock: 20 gauge in right antecubital area, using aseptic technique. ap3 Blood collected. 20:07 Patient has correct armband on for positive identification. Bed in low position. Call ap3 light in reach. Side rails up X 1. Adult w/ patient. maintenance worker swimming pool on. Pulse ox on. NIBP on. Door closed. Noise minimized. 20:07 Patient maintains SpO2 saturation greater than 95% on room air. ap3 20:07 EKG done, by ED staff, reviewed by Vinny Cancino MD. ap3 20:38 Pt visited by mother. ap3 22:58 No provider procedures requiring assistance completed. IV discontinued, intact, ap3 bleeding controlled, No redness/swelling at site. Pressure dressing applied. Administered Medications: No medications were administered Outcome: 22:48 Discharge ordered by . 7 22:58 Discharged to home ambulatory, with family. ap3 22:58 Condition: good 22:58 Discharge instructions given to patient, family, Instructed on discharge instructions, follow up and referral plans. Demonstrated understanding of instructions, follow-up care. 22:58 Patient left the ED. ap3 Signatures: Candice Callejas, RN RN ap3 Deb Peraza Maurice, MD MD 7 Pretty Espino, RN RN ld1
--- NOTE | 2020-11-18 22:49 | EDPHYS ---
Physician Documentation [facility] Name: Will Hemphill Age: 30 yrs Sex: Male : 1990 Arrival Date: 11/18/2020 Time: 19:20 Bed 18 Private MD: ED Physician Vinny Cancino HPI: 11/18 20:06 This 30 yrs old Male presents to ER via Ambulatory with complaints of Chest mh7 Pain, Arm Pain, Neck Pain, <24hrs Old, -Left side. 20:06 The patient or guardian reports chest pain that is located primarily in the anterior mh7 chest wall, left. 20:07 The pain does not radiate. Associated signs and symptoms: Pertinent positives: left mh7 neck pain, left arm pain, Pertinent negatives: abdominal pain, cough, diaphoresis, dizziness, headache, lower extremity pain, lower extremity swelling, lightheadedness, nausea, near syncope, palpitations, recent travel, shortness of breath, syncope, vomiting. The chest pain is described as aching, dull. Duration: The patient or guardian reports multiple episodes, that are intermittent, that wax and wane, with no pattern, started 2 weeks ago. Modifying factors: The symptoms are alleviated by nothing. the symptoms are aggravated by movement. Severity of pain: At its worst the pain was moderate today, in the emergency department the pain has improved markedly. Historical: - Allergies: 19:31 No Known Allergies; ld1 - Home Meds: 19:31 omeprazole 40 mg oral cpDR [Active]; Cholestyramine Light 4 gram oral powd [Active]; ld1 diazepam 10 mg Oral tab 1 tab as needed [Active]; - PMHx: 19:31 Irritable bowel syndrome; ld1 - Immunization history:: Adult Immunizations up to date. - Social history:: Smoking status: Patient denies any tobacco usage or history of. ROS: 20:07 Constitutional: Negative for fever, chills, and weight loss, Eyes: Negative for injury, mh7 pain, redness, and discharge, ENT: Negative for injury, pain, and discharge, Respiratory: Negative for shortness of breath, cough, wheezing, and pleuritic chest pain, Abdomen/GI: Negative for abdominal pain, nausea, vomiting, diarrhea, and constipation, Back: Negative for injury and pain, : Negative for injury, bleeding, discharge, and swelling, Skin: Negative for injury, rash, and discoloration, Neuro: Negative for headache, weakness, numbness, tingling, and seizure, Psych: Negative for depression, anxiety, suicide ideation, homicidal ideation, and hallucinations, Allergy/Immunology: Negative for hives, rash, and allergies, Endocrine: Negative for neck swelling, polydipsia, polyuria, polyphagia, and marked weight changes, Hematologic/Lymphatic: Negative for swollen nodes, abnormal bleeding, and unusual bruising. Exam: 20:07 Constitutional: This is a well developed, well nourished patient who is awake, alert, mh7 and in no acute distress. Head/Face: Normocephalic, atraumatic. Eyes: Pupils equal round and reactive to light, extra-ocular motions intact. Lids and lashes normal. Conjunctiva and sclera are non-icteric and not injected. Cornea within normal limits. Periorbital areas with no swelling, redness, or edema. 20:07 Chest/axilla: Normal chest wall appearance and motion. Nontender with no deformity. No lesions are appreciated. Cardiovascular: Regular rate and rhythm with a normal S1 and S2. No gallops, murmurs, or rubs. Normal PMI, no JVD. No pulse deficits. Respiratory: Lungs have equal breath sounds bilaterally, clear to auscultation and percussion. No rales, rhonchi or wheezes noted. No increased work of breathing, no retractions or nasal flaring. Abdomen/GI: Soft, non-tender, with normal bowel sounds. No distension or tympany. No guarding or rebound. No evidence of tenderness throughout. Back: No spinal tenderness. No costovertebral tenderness. Full range of motion. Skin: Warm, dry with normal turgor. Normal color with no rashes, no lesions, and no evidence of cellulitis. MS/ Extremity: Pulses equal, no cyanosis. Neurovascular intact. Full, normal range of motion. Neuro: Awake and alert, GCS 15, oriented to person, place, time, and situation. Cranial nerves II-XII grossly intact. Motor strength 5/5 in all extremities. Sensory grossly intact. Cerebellar exam normal. Normal gait. Psych: Awake, alert, with orientation to person, place and time. Behavior, mood, and affect are within normal limits. 20:07 Neck: External neck: tenderness, that is moderate, of the left mid cervical area and left trapezius, C-spine: appears grossly normal, Thyroid: appears normal, Trachea: is midline with no obvious abnormalities, ROM/movement: pain, that is moderate, with rotation to the left, limited range of motion, is not appreciated, Meningeal signs: are not present, nuchal rigidity, is not appreciated, Lymph nodes: no appreciated lymphadenopathy. Vital Signs: 19:27 BP 126 / 72; Pulse 55; Resp 18; Temp 97.8; Pulse Ox 97% ; Weight 113.4 kg; Height 6 ft. ld1 3 in. (190.50 cm); Pain 4/10; 20:48 BP 120 / 70; Pulse 64; Resp 18; Pulse Ox 100% on R/A; ap3 21:40 BP 123 / 74; Pulse 65; Resp 17; Pulse Ox 100% on R/A; ap3 19:27 Body Mass Index 31.25 (113.40 kg, 190.50 cm) ld1 MDM: 22:45 Differential diagnosis: acute myocardial infarction, acute pericarditis, anxiety, mh7 coronary artery disease chest wall pain, costochondritis, myocarditis, pneumonia, pneumothorax. HEART Score: History: Slightly Suspicious (0), ECG: Normal (0), Age: < or = 45 years (0), Risk Factors: No Risk Factors Known (0), Troponin: < or = 1 x Normal Limit (0), Total Score = 0. Data reviewed: vital signs, nurses notes, lab test result(s), cardiac enzymes, CBC, electrolytes, urinalysis, EKG, radiologic studies, CT scan, plain films. Data interpreted: Pulse oximetry: on room air is 100 %. Interpretation: normal. Counseling: I had a detailed discussion with the patient and/or guardian regarding: the historical points, exam findings, and any diagnostic results supporting the discharge/admit diagnosis, lab results, radiology results, the need for outpatient follow up, to return to the emergency department if symptoms worsen or persist or if there are any questions or concerns that arise at home. Response to treatment: the patient's symptoms have resolved after treatment, the patient's blood pressure is in an acceptable range, mental status has returned to baseline, the patient no longer shows bradycardia, the patient is not short of breath, the patient is not tachycardic, the patient's pain is gone, the patient's temperature has normalized. 22:48 Patient medically screened. [facility] 11/18 19:51 Order name: Basic Metabolic Panel [facility] 11/18 19:51 Order name: CBC with Diff [facility] 11/18 19:51 Order name: LFT's [facility] 11/18 19:51 Order name: Magnesium [facility] 11/18 19:51 Order name: NT PRO-BNP [facility] 11/18 19:51 Order name: PT-INR [facility] 11/18 19:51 Order name: Troponin (emerg Dept Use Only) [facility] 11/18 20:11 Order name: CBC with Automated Diff; Complete Time: 21:04 [facility] 11/18 20:12 Order name: Protime (+INR); Complete Time: 21:04 [facility] 11/18 20:56 Order name: Basic Metabolic Panel; Complete Time: 21:04 [facility] 11/18 20:56 Order name: Liver (Hepatic) Function; Complete Time: 21:04 [facility] 11/18 20:56 Order name: Troponin (Emerg Dept Use Only); Complete Time: 21:04 [facility] 11/18 20:56 Order name: NT PRO-BNP; Complete Time: 21:04 [facility] 11/18 20:56 Order name: Magnesium; Complete Time: 21:04 [facility] 11/18 19:51 Order name: XRAY Chest (1 view) [facility] 11/18 19:51 Order name: EKG; Complete Time: 19:52 [facility] 11/18 19:51 Order name: Cardiac monitoring; Complete Time: 19:56 [facility] 11/18 19:51 Order name: EKG - Nurse/Tech; Complete Time: 19:56 [facility] 11/18 19:51 Order name: IV Saline Lock; Complete Time: 19:56 [facility] 11/18 19:51 Order name: Labs collected and sent; Complete Time: 19:56 [facility] 11/18 19:51 Order name: O2 Per Protocol; Complete Time: 19:56 [facility] 11/18 19:51 Order name: O2 Sat Monitoring; Complete Time: 19:56 [facility] 11/18 20:36 Order name: RAD; Complete Time: 21:04 [facility] 11/18 21:04 Order name: CT C Spine [facility] Administered Medications: No medications were administered Disposition: 11/18/20 22:48 Discharged to Home. Impression: Chest pain, unspecified, Cervical Strain. - Condition is Stable. - Discharge Instructions: Chest Wall Pain, Kmyd-[id number], Nonspecific Chest Pain, Abfd-uy-[id number], Cervical Sprain, Dejw-ff-Xquw. - Medication Reconciliation Form, Thank You Letter, Antibiotic Education, Prescription Opioid Use form. - Follow up: Private Physician; When: 1 - 2 days; Reason: Worsening of condition, Recheck today's complaints, Continuance of care, Re-evaluation by your physician. - Problem is an ongoing problem. - Symptoms have improved. Signatures: Dispatcher [employer] EDCandice Clemons RN RN ap3 Vinny Cancino MD MD mh7 Pretty Espino RN RN ld1 Corrections: (The following items were deleted from the chart) 22:58 22:48 11/18/2020 22:48 Discharged to Home. Impression: Chest pain, unspecified; ap3 Cervical Strain. Condition is Stable. Forms are Medication Reconciliation Form, Thank You Letter, Antibiotic Education, Prescription Opioid Use. Follow up: Private Physician; When: 1 - 2 days; Reason: Worsening of condition, Recheck today's complaints, Continuance of care, Re-evaluation by your physician. Problem is an ongoing problem. Symptoms have improved. mh7
[2020-11-18 23:12] VITALS: TEMP 97.8
[2020-11-18 23:14] VITALS: O2SAT 100
[2020-11-18 23:16] VITALS: BP 123/74
--- NOTE | 2020-11-19 13:24 | RAD REPORT ---
EXAM DESCRIPTION: CT CERVICAL SPINE WITHOUT IV CONTRAST on 11/18/2020 9:04 PM CDT CLINICAL HISTORY: RADICULOPATHY COMPARISON: None. TECHNIQUE: This exam was performed according to our departmental dose-optimization program, which in cludes automated exposure control, adjustment of the mA and/or kV according to patient size and/or us e of iterative reconstruction technique. FINDINGS: There is no acute fracture. Vertebral body heights are preserved. Alignment is anatomic. Disc spaces are maintained. Soft tissues are unremarkable. IMPRESSION: No acute fracture or subluxation. Electronically signed by: Skinny Cheatham MD 11/18/2020 10:18 PM CDT Due to temporary technical issues with the PACS/Fluency reporting system, reports are being signed by the in house radiologists without review as a courtesy to insure prompt reporting. The interpreting radiologist is fully responsible for the content of the report.
--- NOTE | 2020-11-19 16:31 | EKG ---
Test Date: 2020-11-18 Test Time: 19:43:47 Conductor Pullman: ALP MEASUREMENT RESULTS: Intervals: Rate: 61 MT: 124 QRSD: 98 QT: 400 QTc: 402 [place]: P: 28 MT: 124 QRS: 70 T: 39 INTERPRETIVE STATEMENTS: Normal sinus rhythm Normal ECG Compared to ECG 04/06/2014 23:52:18 No significant changes Electronically Signed On 11-19-20 16:29:45 CDT by Sly Arevalo
== END 2020-11-18 22:58 | disposition home or self-care (01) ==
LOC: ER 19:17
DX: S16.1XXA Strain of muscle, fascia and tendon at neck level, initial encounter (principal)
CPT/HCPCS: 36415; 71045; 72125; 80048; 80076; 83735; 83880; 84484; 85025; 85610; 93005; 99285

== ENCOUNTER 2021-08-22 17:45 | Emergency (ER) | payer OTHER, SELFPAY ==
--- OUTSIDE RECORDS SUMMARY | 2021-08-22 17:48 | XMS REPORT | Continuity of Care Document ---
:1990 Author Organization [facility] t Address [address] [place] [address] Care Team Providers Name Role Phone Louis Leyva Primary Care Physician STEPHON Attending Clinician Unavailable Stephon ABURTOP Attending Clinician NELY Attending Clinician Unavailable Payers Payer Name Policy Type Policy Number Effective Date Expiration Date S ource Problems Condition Condition Condition Status Onset Resolution Last Treating Co mments Source Name Details Category Date Date Treatment Clinician Date No known No known Disease Unive rs active active ity of problems problems [facility] Allergies, Adverse Reactions, Alerts Allergy Allergy Status Severity Reaction(s) Onset Inactive Treating Comm ents Source Name Type Date Date Clinician NO KNOWN Drug Active Univers ALLERGIE Class ity of S [facility] Social History Social Habit Start Date Stop Date Quantity Comments Source Exposure to Not sure [facility] SARS-CoV-2 (event) Medica l Branch Tobacco use and 2020-04-10 2020-04-10 Never used [facility] exposure 00:00:00 00:00:00 [facility] Sex [birth year] [facility] 00:00:00 00:00:00 [facility] Smoking Status Start Date Stop Date Source Never smoker [facility] Medications Ordered Filled Start Stop Current Ordering Indication Dosage Frequency Signature Comments Components Source Medication Medication Date Date Medication? Clinician (SIG) Name Name diazePAM 5 2020-05 Yes 5mg Take 5 mg Un martha mg tablet 0-21 by mouth ity of 14:12: daily. [address] PEPPERMINT 2020-05 Yes 2{tbl} Take 2 Uni vers OIL ORAL 0-21 tablets by ity o f 14:12: mouth. [place] [address] Take Medical tablets Branch with meals for abdominal pain diazePAM 5 2020-05 Yes 5mg Take 5 mg Un martha mg tablet 0-21 by mouth ity of 14:12: daily. [address] [place]PP[place] 2020-05 Yes 2{tbl} Take 2 Uni vers OIL ORAL 0-21 tablets by ity o f 14:12: mouth. [place] [address] Take Medical tablets Branch with meals for abdominal pain diazePAM 5 2020-05 Yes 5mg Take 5 mg Un martha mg tablet 0-21 by mouth ity of 14:12: daily. [address] [place]PP[place] 2020-05 Yes 2{tbl} Take 2 Uni vers OIL ORAL 0-21 tablets by ity o f 14:12: mouth. [place] [address] Take Medical tablets [place] with meals for abdominal pain cholestyram 2020-05- No [id number] 1{packe Take 1 Univers ine 4 gram 0-21 01-20 t} Packet by ity of packet 00:00: 05:59 mouth 3 [place] 00 :00 (three) Medical times [place] daily for 90 days. cholestyram 2020-05- No [id number] 1{packe Take 1 Univers ine 4 gram 0-21 01-20 t} Packet by ity of packet 00:00: 05:59 mouth 3 [place] 00 :00 (three) Medical times Branch daily for 90 days. cholestyram 2020-05- No [id number] 1{packe Take 1 Univers ine 4 gram 0-21 01-20 t} Packet by ity of packet 00:00: 05:59 mouth 3 [place] 00 :00 (three) Medical times Branch daily for 90 days. omeprazole Yes 40mg Take 1 Unive rs 40 mg 5-10 capsule by ity of capsule 00:00: mouth [place] 00 every Medical Tuesday, Branch Tuesday and Tuesday. omeprazole 2020-0 Yes 40mg Take 1 Unive rs 40 mg 5-10 capsule by ity of capsule 00:00: mouth [place] 00 every Medical Tuesday, Branch Tuesday and Tuesday. omeprazole 2020-0 Yes 40mg Take 1 Unive rs 40 mg 5-10 capsule by ity of capsule 00:00: mouth [place] 00 every Medical Tuesday, Branch Tuesday and Tuesday. Vital Signs Vital Name Observation Time Observation Value Comments Source Systolic blood 2021-03-19 19:12:00 131 mm[Hg] Univer sity of pressure [facility] Diastolic blood 2021-03-19 19:12:00 81 mm[Hg] Unive rsity of [facility] Heart rate 2021-03-19 19:12:00 67 /min [facility] Body temperature 2021-03-19 19:12:00 36.61 [facility] height 2021-03-19 19:12:00 190.5 cm [facility] Body weight 2021-03-19 19:12:00 121.156 kg [facility] BMI 2021-03-19 19:12:00 33.39 kg/m2 [facility] Procedures This patient has no known procedures. Encounters Start End Encounter Admission Attending Care Care Encounter Source Date/Time Date/Time Type Type Clinicians Facility Department ID 2021-09-17 2021-09-17 Outpatient Corina SZYMANSKI [facility] [id number] [facility] 14:00:00 14:00:00 MICHAEL [id number] [facility] 2021-04-29 2021-04-29 Patient Stephon ARJOSSELIN [id number] Univers 00:00:00 00:00:00 Secure Msg Michael SPECIALTY [id number] ity of [id number] [id number] [address] 2021-03-19 2021-03-19 Office ALEXANDER Szymanski [id number] Univers 14:00:46 14:52:19 Visit Michael [facility] [id number] i [id number] [id number] [address] 2021-03-19 2021-03-19 Outpatient Corina SZYMANSKI [facility] [id number] [facility] 14:00:00 14:00:00 MICHAEL [id number] [facility] 2021-03-19 2021-03-19 Outpatient Corina SZYMANSKI [facility] [id number] Univers 14:00:00 14:00:00 MICHAEL [facility] 2020-11-13 2020-11-13 Patient ALEXANDER Szymanski [id number] 00:00:00 00:00:00 Secure Msg Michael Y HEALTH [id number] CLINICS [id number] 2020-10-06 2020-10-06 Patient ALEXANDER Szymanski [id number] 00:00:00 00:00:00 Secure Msg Michael Y HEALTH [id number] CLINICS [id number] 2020-09-18 2020-09-18 Office ROBSON Szymanski [id number] 14:11:09 14:39:36 Visit Michael Y HEALTH [id number] CLINICS [id number] 2020-09-18 2020-09-18 Outpatient Corina SZYMANSKI [facility] [id number] Univers 14:00:00 14:00:00 MICHAEL [id number] [facility] 2020-09-18 2020-09-18 Outpatient Corina SZYMANSKI [facility] [id number] Univers 14:00:00 14:00:00 MICHAEL [facility] 2020-07-31 2020-07-31 Outpatient Corina SZYMANSKI [facility] [id number] Univers 14:00:00 14:00:00 MICHAEL [id number] [facility] 2020-07-31 2020-07-31 Outpatient Corina SZYMANSKI [facility] [id number] Univers 14:00:00 14:00:00 MICHAEL [facility] 2020-05-01 2020-05-01 Outpatient Corina SZYMANSKI [facility] [id number] Univers 14:00:00 14:00:00 MICHAEL [id number] [facility] 2020-05-01 2020-05-01 Outpatient Corina SZYMANSKI [facility] [id number] Univers 14:00:00 14:00:00 MICHAEL [facility] 2020-04-11 2020-04-11 [id number] Univers 00:00:00 00:00:00 REGIS [facility] 2020-04-10 2020-04-10 Outpatient R [facility] [id number] Univers 15:30:00 15:30:[id number] [place] [address] 2020-04-10 2020-04-10 [id number] Univers 14:30:00 14:30:00 MICHAEL [facility] Results This patient has no known results.
[2021-08-22] MEDS ORDERED: KETOROLAC 30 MG/ML INJ ONE (18:53)
[2021-08-22] MEDS ORDERED: dexAMETHasone 10 MG/ML VIAL ONE (18:53)
[2021-08-22] MEDS ORDERED: NA CHLORIDE 0.9% 1,000 ML ONE (18:53)
[2021-08-22] MEDS ORDERED: DIAZEPAM 5 MG TABLET ONE (18:53)
--- NOTE | 2021-08-22 19:02 | RAD REPORT ---
EXAM DESCRIPTION: CT - C Spine Wo Con - 08/22/2021 6:51 pm CLINICAL HISTORY: Pain;Numbness/tingling COMPARISON: Abdomen Pelvis W Contrast dated 05/30/2021; Abdomen Pelvis W Contrast dated 11/10/2019C Spine Wo Con dated 11/18/[address] Scan was obtained of the cervical spine without contrast. Reformats were provided in th e sagittal and coronal plane. FINDINGS: No acute fracture of the cervical spine. No traumatic malalignment. No prevertebral edema. No signficant focal degenerative changes. No suspicious thyroid nodules or lymphadenopathy. Azygos f issure, a normal variant. IMPRESSION: No fracture or traumatic malalignment of the cervical spine. No focal degenerative delgado es.
--- NOTE | 2021-08-22 19:19 | RAD REPORT ---
EXAM DESCRIPTION: RAD - Chest Single View - 08/22/2021 7:08 pm CLINICAL HISTORY: COUGH COMPARISON: Chest Single View dated 11/18/2020; Chest Single View dated 01/08/2019; CHEST SINGLE VIEW dated 07/26/2015 FINDINGS: Lines: None. Lungs: No evidence of edema or pneumonia. Pleural: No significant pleural effusions or pneumothorax. Cardiac: The heart size is within normal limits. Bones: No acute fractures. Other: IMPRESSION: No acute cardiopulmonary disease.
--- NOTE | 2021-08-22 19:23 | ER ---
Nurse's Notes [facility] Name: Will Hemphill Age: 31 yrs Sex: Male : 1990 Arrival Date: 08/22/2021 Time: 17:49 Bed 13 Private MD: Diagnosis: Cervical disc disorder with radiculopathy, unspecified cervical region;Strain of muscle, fascia and tendon at neck level Presentation: 08/22 17:53 Chief complaint: Patient states: "For about a week now I get a sharp pain in my left ab2 shoulder and it goes up my neck. Deep breathing, sneezing and coughing make it worse." Pt denies any trauma. Pt states he woke up last week and noticed the pain. Coronavirus screen: Vaccine status: Patient reports being unvaccinated. Client denies travel out of the [place] in the last 14 days. At this time, the client does not indicate any symptoms associated with coronavirus-19. Ebola Screen: Patient negative for fever greater than or equal to 101.5 degrees Fahrenheit, and additional compatible Ebola Virus Disease symptoms Patient denies exposure to infectious person. Patient denies travel to an Ebola-affected area in the 21 days before illness onset. No symptoms or risks identified at this time. Initial Sepsis Screen: Does the patient meet any 2 criteria? No. Patient's initial sepsis screen is negative. Does the patient have a suspected source of infection? No. Patient's initial sepsis screen is negative. Risk Assessment: Do you want to hurt yourself or someone else? Patient reports no desire to harm self or others. Onset of symptoms is unknown. 17:53 Method Of Arrival: Ambulatory ab2 17:53 Acuity: PABLO 4 ab2 Triage Assessment: 17:56 General: Appears in no apparent distress. uncomfortable, Behavior is calm, cooperative, ab2 appropriate for age. Pain: Complains of pain in left scapular area Pain radiates to back of neck. Musculoskeletal: Reports pain in left scapular area. Historical: - Allergies: 17:55 No Known Allergies; ab2 - PMHx: 17:55 Irritable bowel syndrome; ab2 - Immunization history:: Adult Immunizations up to date. - Social history:: Smoking status: Patient denies any tobacco usage or history of. Screenin:00 Abuse screen: Denies threats or abuse. Denies injuries from another. Nutritional bp screening: No deficits noted. Tuberculosis screening: No symptoms or risk factors identified. Fall Risk None identified. Assessment: 18:00 General: SEE TRIAGE NOTE. bp 18:30 Reassessment: PROVIDER AT B/S. bp 19:40 Neuro: Oriented to person, place, time. st1 Vital Signs: 17:53 BP 151 / 91; Pulse 79; Resp 17; Temp 97.4(TE); Pulse Ox 97% on R/A; Weight 117.93 kg; ab2 Height 6 ft. 3 in. (190.50 cm); Pain 2/10; 18:30 BP 102 / 70; Pulse 70; Resp 16; Pulse Ox 97% ; bp 19:38 BP 115 / 89; Pulse 67; Resp 16; Pulse Ox 98% on R/A; st1 17:53 Body Mass Index 32.50 (117.93 kg, 190.50 cm) ab2 ED Course: 17:49 Patient arrived in ED. rg4 17:55 Triage completed. ab2 17:56 Arm band placed on left wrist. ab2 17:58 Frederick Garrett, RN is Primary Nurse. bp 18:00 Patient has correct armband on for positive identification. Bed in low position. Call bp light in reach. Side rails up X2. 18:24 Milo King MD is Attending Physician. deya 18:52 CT C Spine In Process Unspecified. EDMS 19:06 X-ray completed. Portable x-ray completed in exam room. Patient tolerated procedure bq well. 19:10 Chest Single View XRAY In Process Unspecified. EDMS 19:15 Inserted saline lock: 20 gauge in right antecubital area, using aseptic technique. bp Blood collected. 19:22 Bertin Hermosillo MD is Referral Physician. deya 19:39 No provider procedures requiring assistance completed. IV discontinued, intact, st1 bleeding controlled, No redness/swelling at site. Pressure dressing applied. Administered Medications: 19:15 Drug: NS 0.9% 1000 ml Route: IV; Rate: 1 bolus; Site: right antecubital; bp 19:40 Follow up: Response: No adverse reaction; IV Status: Completed infusion; IV Intake: st1 1000ml 19:15 Drug: Ketorolac 30 mg Route: IVP; Site: right antecubital; bp 19:15 Drug: Decadron - Dexamethasone 10 mg Route: IVP; Site: right antecubital; bp 19:15 Drug: Valium (diazepam) 5 mg Route: PO; bp Intake: 19:40 IV: 1000ml; Total: 1000ml. st1 Outcome: 19:22 Discharge ordered by . deya 19:39 Discharged to home ambulatory. st1 19:39 Condition: good 19:39 Discharge instructions given to patient, Instructed on discharge instructions, follow up and referral plans. no drinking with medication, medication usage, Demonstrated understanding of instructions, follow-up care, medications, Prescriptions given X 19:39 Prescriptions given X 4. st1 19:39 Prescriptions given X 19:42 Patient left the ED. st1 Signatures: Dispatcher [employer] EDMS Milo King MD MD cha Quilty, Betty bq Garcia, Rubi rg4 Frederick Garrett, RN RN bp Jefe Mccann Shellie, RN RN st1
--- NOTE | 2021-08-22 19:23 | EDPHYS ---
Physician Documentation [facility] Name: Will Hemphill Age: 31 yrs Sex: Male : 1990 Arrival Date: 08/22/2021 Time: 17:49 Bed 13 Private MD: ED Physician Milo King HPI: 08/22 18:44 This 31 yrs old Male presents to ER via Ambulatory with complaints of deya Shoulder Pain, Neck Pain, >24Hrs Old. 18:44 The patient or guardian complains of pain. deya Historical: - Allergies: 17:55 No Known Allergies; ab2 - PMHx: 17:55 Irritable bowel syndrome; ab2 - Immunization history:: Adult Immunizations up to date. - Social history:: Smoking status: Patient denies any tobacco usage or history of. ROS: 18:45 Constitutional: Negative for fever, chills, and weight loss, Eyes: Negative for injury, deya pain, redness, and discharge, ENT: Negative for injury, pain, and discharge, Cardiovascular: Negative for chest pain, palpitations, and edema, Respiratory: Negative for shortness of breath, cough, wheezing, and pleuritic chest pain, Abdomen/GI: Negative for abdominal pain, nausea, vomiting, diarrhea, and constipation, Back: Negative for injury and pain, : Negative for injury, bleeding, discharge, and swelling, MS/Extremity: Negative for injury and deformity, Skin: Negative for injury, rash, and discoloration, Neuro: Negative for headache, weakness, numbness, tingling, and seizure, Psych: Negative for depression, anxiety, suicide ideation, homicidal ideation, and hallucinations, Allergy/Immunology: Negative for hives, rash, and allergies, Endocrine: Negative for neck swelling, polydipsia, polyuria, polyphagia, and marked weight changes, Hematologic/Lymphatic: Negative for swollen nodes, abnormal bleeding, and unusual bruising. 18:45 Neck: Positive for pain with movement, tenderness. Exam: 18:45 Constitutional: This is a well developed, well nourished patient who is awake, alert, deya and in no acute distress. Head/Face: Normocephalic, atraumatic. Eyes: Pupils equal round and reactive to light, extra-ocular motions intact. Lids and lashes normal. Conjunctiva and sclera are non-icteric and not injected. Cornea within normal limits. Periorbital areas with no swelling, redness, or edema. ENT: Nares patent. No nasal discharge, no septal abnormalities noted. Tympanic membranes are normal and external auditory canals are clear. Oropharynx with no redness, swelling, or masses, exudates, or evidence of obstruction, uvula midline. Mucous membranes moist. Neck: Trachea midline, no thyromegaly or masses palpated, and no cervical lymphadenopathy. Supple, full range of motion without nuchal rigidity, or vertebral point tenderness. No Meningismus. Chest/axilla: Normal chest wall appearance and motion. Nontender with no deformity. No lesions are appreciated. Cardiovascular: Regular rate and rhythm with a normal S1 and S2. No gallops, murmurs, or rubs. Normal PMI, no JVD. No pulse deficits. Respiratory: Lungs have equal breath sounds bilaterally, clear to auscultation and percussion. No rales, rhonchi or wheezes noted. No increased work of breathing, no retractions or nasal flaring. Abdomen/GI: Soft, non-tender, with normal bowel sounds. No distension or tympany. No guarding or rebound. No evidence of tenderness throughout. Male : Normal genitalia with no discharge or lesions. Skin: Warm, dry with normal turgor. Normal color with no rashes, no lesions, and no evidence of cellulitis. MS/ Extremity: Pulses equal, no cyanosis. Neurovascular intact. Full, normal range of motion. Neuro: Awake and alert, GCS 15, oriented to person, place, time, and situation. Cranial nerves II-XII grossly intact. Motor strength 5/5 in all extremities. Sensory grossly intact. Cerebellar exam normal. Normal gait. Psych: Awake, alert, with orientation to person, place and time. Behavior, mood, and affect are within normal limits. 18:45 Back: pain, that is mild, that is moderate, of the left trapezius, ROM is painful, with flexion, with extension, normal spinal alignment noted, CVA tenderness, is absent, muscle spasm, is not present. Vital Signs: 17:53 BP 151 / 91; Pulse 79; Resp 17; Temp 97.4(TE); Pulse Ox 97% on R/A; Weight 117.93 kg; ab2 Height 6 ft. 3 in. (190.50 cm); Pain 2/10; 18:30 BP 102 / 70; Pulse 70; Resp 16; Pulse Ox 97% ; bp 19:38 BP 115 / 89; Pulse 67; Resp 16; Pulse Ox 98% on R/A; st1 17:53 Body Mass Index 32.50 (117.93 kg, 190.50 cm) ab2 MDM: 18:24 Patient medically screened. deya 18:45 Differential diagnosis: tendonitis. Data reviewed: vital signs, nurses notes, lab test deya result(s), radiologic studies, CT scan, plain films. Data interpreted: forensic analyst: not applicable for this patient encounter. rate is 70 beats/min, rhythm is regular. Test interpretation: by ED physician or midlevel provider: plain radiologic studies. Counseling: I had a detailed discussion with the patient and/or guardian regarding: the historical points, exam findings, and any diagnostic results supporting the discharge/admit diagnosis, lab results, radiology results, the need for outpatient follow up, for definitive care, a family practitioner, a neurologist. Medical screen evaluation completed. EMTALA emergency medical condition absent. Medical screen evaluation completed. EMTALA emergency medical condition absent. 08/22 18:39 Order name: CBC with Diff [facility] 08/22 18:39 Order name: Comprehensive Metabolic Panel [facility] 08/22 18:39 Order name: Chest Single View XRAY; Complete Time: 19:22 [facility] 08/22 18:39 Order name: CT C Spine; Complete Time: 19:22 deya Administered Medications: 19:15 Drug: NS 0.9% 1000 ml Route: IV; Rate: 1 bolus; Site: right antecubital; bp 19:40 Follow up: Response: No adverse reaction; IV Status: Completed infusion; IV Intake: st1 1000ml 19:15 Drug: Ketorolac 30 mg Route: IVP; Site: right antecubital; bp 19:15 Drug: Decadron - Dexamethasone 10 mg Route: IVP; Site: right antecubital; bp 19:15 Drug: Valium (diazepam) 5 mg Route: PO; bp Disposition Summary: 08/22/21 19:22 Discharge Ordered Location: Home deya Problem: new deya Symptoms: have improved deya Condition: Stable deya Diagnosis - Cervical disc disorder with radiculopathy, unspecified cervical region deya - Strain of muscle, fascia and tendon at neck level deya Followup: deya - With: Private Physician - When: 2 - 3 days - Reason: Recheck today's complaints, Continuance of care, Re-evaluation by your physician [facility]up: [facility] - With: - When: 2 - 3 days - Reason: Recheck today's complaints, Re-evaluation by your physician Discharge Instructions: - Discharge Summary Sheet deya - Cervical Radiculopathy deya - Cervical Radiculopathy, [id number] [facility] Forms: - Medication Reconciliation Form deya - Thank You Letter deya - Antibiotic Education [facility] - Prescription Opioid Use [facility] Prescriptions: - Diclofenac Sodium 75 mg Oral tablet,delayed release (DR/EC) - take 1 tablet by ORAL route 2 times per day; 20 tablet; Refills: 0, Product [facility] Selection Permitted - Cyclobenzaprine 5 mg Oral Tablet - take 1 tablet by ORAL route 3 times per day As needed; 15 tablet; Refills: 0, [facility] Product Selection Permitted - dexamethasone 2 mg Oral tablet - take 1 tablet by ORAL route 3 times per day; 12 tablet; Refills: 0, Product [facility] Selection Permitted - Tylenol-Codeine #3 300 mg-30 mg Oral - take 2 tablet by ORAL route every 6 hours; 20 tablet; Refills: 0, Product [facility] Selection Permitted Signatures: Dispatcher [employer] Milo Moon MD MD cha Peltier, Brian, RN RN Jefe Shultz Shellie RN st1
[2021-08-22 19:40] LABS: Absolute Lymphocytes (CBC) 1.7 K/uL (0.7-4.9); Hematocrit 44.2 % (39.6-49.0); Lymphocytes % 25.2 % (15.3-44.8); RBC Red Blood Cell Count 5.31 M/uL (4.33-5.43)
[2021-08-22 19:58] LABS: AST/SGOT 27 U/L (15-37); Albumin 3.6 g/dL (3.4-5.0); Alkaline Phosphatase 59 U/L (45-117); BUN Blood Urea Nitrogen 21 mg/dL (7-18); Bicarbonate 26 mmol/L (21-32); Bilirubin Total 0.3 mg/dL (0.2-1.0); Glucose Level 90 mg/dL (74-106); Potassium 3.8 mmol/L (3.5-5.1); Protein, Total 7.6 g/dL (6.4-8.2); Sodium Level 139 mmol/L (136-145)
[2021-08-22 20:50] VITALS: TEMP 97.4
[2021-08-22 20:52] VITALS: BP 115/89; O2SAT 98
[2021-08-22 20:58] LABS: ALT/SGPT 43 U/L (12-78)
== END 2021-08-22 19:42 | disposition home or self-care (01) ==
LOC: ER 17:45
DX: S16.1XXA Strain of muscle, fascia and tendon at neck level, initial encounter (principal); M50.10 Cervical disc disorder with radiculopathy, unspecified cervical region
CPT/HCPCS: 85025; 36415; 80053; 72125; 71045; 96375; 96374; 99284; J1100; J7030

== ENCOUNTER 2022-03-16 20:20 | Emergency (ER) | payer OTHER ==
--- OUTSIDE RECORDS SUMMARY | 2022-03-16 20:43 | XMS REPORT | Continuity of Care Document ---
:1990 Author Organization [facility] t Address [address] [place] [address] Care Team Providers Name Role Phone Rohit Leyva Primary Care Physician Michael Pinto Attending Clinician MICHAEL SZYMANSKI Attending Clinician Unavailable Dariel Smiley DO Attending Clinician Doctor Unassigned, [place] Attending Clinician Unavailable Regis Mckay MD Attending Clinician REGIS MCKAY Attending Clinician Unavailable [facility] Attending Clinician Unavailable Payers Payer Name Policy Type Policy Number Effective Date Expiration Date S ource Problems Condition Condition Condition Status Onset Resolution Last Treating Co mments Source Name Details Category Date Date Treatment Clinician Date No known No known Disease Unive rs active active ity of problems problems [facility] Allergies, Adverse Reactions, Alerts This patient has no known allergies or adverse reactions. Social History Social Habit Start Date Stop Date Quantity Comments Source Exposure to 2021-09-07 2021-09-17 Not sure [facility] SARS-CoV-2 (event) 00:00:00 14:43:00 Medica l [place] Tobacco use and 2020-04-10 2020-04-10 Never used [facility] exposure 00:00:00 00:00:00 Medical [place] Sex Ass[birth year] [facility] 00:00:00 00:00:00 [facility] Smoking Status Start Date Stop Date Source Never smoker [facility] Medications Ordered Filled Start Stop Current Ordering Indication Dosage Frequency Signature Comments Components Source Medication Medication Date Date Medication? Clinician (SIG) Name Name diazePAM 5 Yes 5mg Take 5 mg Un martha mg tablet 4-21 by mouth ity of 14:45: daily. [place] 12 [facility] cholestyram 2021- No [id number] 2g Take 0.5 Univers ine 4 gram 4-21 10-19 Packets by it y of powder 00:00: 04:59 mouth 3 [place] 00 :00 (three) Medical times Branch daily with meals for 180 days. PEPPERMINT 2020-05 Yes 2{tbl} Take 2 Uni vers OIL ORAL 0-21 tablets by ity o f 14:12: mouth. [place] 39 Take Medical tablets Branch with meals for abdominal pain omeprazole Yes 40mg Take 1 Unive rs 40 mg 5-10 capsule by ity of capsule 00:00: mouth [place] 00 every Medical Tuesday, Branch Tuesday and Tuesday. Vital Signs Vital Name Observation Time Observation Value Comments Source Systolic blood 2021-09-17 19:44:00 126 mm[Hg] Univer sity of pressure [facility] Diastolic blood 2021-09-17 19:44:00 77 mm[Hg] Unive rsity of pressure [facility] Heart rate 2021-09-17 19:44:00 82 /min [facility] Body temperature 2021-09-17 19:44:00 36.61 Kristi [facility] Respiratory rate 2021-09-17 19:44:00 16 /min [facility] Body height 2021-09-17 19:44:00 190.5 cm [facility] Body weight 2021-09-17 19:44:00 128.822 kg [facility] BMI 2021-09-17 19:44:00 35.50 kg/m2 [facility] Procedures This patient has no known procedures. Encounters Start End Encounter Admission Attending Care Care Encounter Source Date/Time Date/Time Type Type Clinicians Facility Department ID 2021-09-17 2021-09-17 Office ALEXANDER Szymanski [id number] [facility] 14:00:00 14:30:[address] [facility] [id number] i [id number] [id number] [address] 2021-09-17 2021-09-17 Outpatient [facility] [id number] Univers 14:00:00 14:00:00 MICHAEL ity [facility] 2021-04-29 2021-04-29 [facility] [id number] Univers 00:00:00 00:00:00 Secure Msg Michael SPECIALTY [id number] [id number] AT [id number] [address] 2021-03-19 2021-03-19 Office Taran [facility] [id number] Univers 14:00:46 14:52:19 Visit Michael Y HEALTH [id number] i [id number] [id number] [address] 2021-03-19 2021-03-19 Outpatient [facility] [id number] Univers 14:00:00 14:00:00 [facility] 2020-11-13 2020-11-13 [facility] [id number] Univers 00:00:00 00:00:00 Secure Msg Michael Y HEALTH [id number] [id number] [id number] [address] 2020-11-13 2020-11-13 Patient Taran [facility] [id number] 00:00:00 00:00:00 Secure Msg Michael Y HEALTH [id number] CLINICS [id number] [id number] [facility] 2020-10-06 2020-10-06 Patient Taran [facility] [id number] Univers 00:00:00 00:00:00 Secure Msg Michael Y HEALTH [id number] [id number] [id number] [address] 2020-10-06 2020-10-06 Patient Taran [facility] [id number] 00:00:00 00:00:00 Secure Msg Michael Y HEALTH [id number] CLINICS [id number] [id number] 2020-09-18 2020-09-18 Office Taran [facility] [id number] Univers 14:11:09 14:39:36 Visit Michael Y HEALTH [id number] i [place] [id number] [place] 703051 [place] 2020-09-18 2020-09-18 [facility] [id number] 14:11:09 14:39:36 Visit Michael Y HEALTH [id number] CLINICS [id number] [id number] 07 2020-09-18 2020-09-18 Outpatient R [facility] [id number] Univers 14:00:00 14:00:00 MICHAEL ity [facility] 2020-08-19 2020-08-19 [facility] [id number] Univers 00:00:00 00:00:00 Outreach Dariel PRIMARY [id number] i ty of [place] [id number] Tn dical [address] [place] 2020-08-11 2020-08-11 [facility] [id number] Univers 00:00:00 00:00:00 Secure Msg Michael SPECIALTY [id number] [id number] [id number] Tn dical [facility] 072 [facility] 2020-07-31 2020-07-31 Office ROBSON Szymanski [id number] Univers 14:03:20 14:35:02 Visit Michael Y HEALTH [id number] i [place] [id number] [address] 2020-07-31 2020-07-31 Outpatient R TARAN, [facility] [id number] Univers 14:00:00 14:00:00 MICHAEL ity of [facility] 2020-07-21 2020-07-21 Patient ROBSON SzymanskiIT [id number] Univers 00:00:00 00:00:00 Secure Msg Michael Y HEALTH [id number] [place] [id number] [address] 2020-07-16 2020-07-16 Patient Taran [facility] [id number] Univers 00:00:00 00:00:00 Secure Msg Michael Y HEALTH 350.1.13.10 [place] [id number] [address] 2020-06-27 2020-06-27 Telephone ROBSON Szymanski [id number] Univers 00:00:00 00:00:00 Michael Y HEALTH 350.1.13.10 i [place] [id number] [address] 2020-05-19 2020-05-19 Refill Doctor [facility] [id number] Univers 00:00:00 00:00:00 Unassigned, Y HEALTH 350.1.13.10 ity of [place] [id number] [address] 2020-05-06 2020-05-06 Patient Taran [facility] [id number] Univers 00:00:00 00:00:00 Secure Msg Michael Y HEALTH 350.1.13.10 [place] [id number] [address] 2020-05-05 2020-05-05 Orders Doctor CHINO [id number] Univers 00:00:00 00:00:00 Only Unassigned, [place] 350.1.13.10 ity of [place] [facility] 4.2.7.2.686 Sammy as [id number] [facility] 009 [place] 2020-05-01 2020-05-01 Office ROBSON Szymanski [id number] Univers 14:02:59 14:32:59 Visit Michael Y HEALTH 350.1.13.10 i ty [place] [id number] [facility] 071 [place] 2020-05-01 2020-05-01 Outpatient R [facility] [id number] Univers 14:00:00 14:00:00 MICHAEL itjose miguel [facility] 2020-04-14 2020-04-14 [facility] [id number] Univers 00:00:00 00:00:00 Secure Msg Michael SPECIALTY 350.1.13.10 [place] [id number] [place] [id number] [facility] 2020-04-11 2020-04-11 [facility] JEFF Mckay [id number] Univers 13:12:00 23:59:00 Encounter Regis Bermeo 350.1.13.10 ity of BUILDING 4.2.7.2.686 Sammy as [id number] [facility] 031 [place] 2020-04-11 2020-04-11 [facility] ACO [id number] Univers 00:00:00 00:00:00 REGIS gomez [facility] 2020-04-10 2020-04-10 Lobby Attendant [facility] [id number] Univers 15:24:04 15:30:45 Visit Michael Szymanski HEALTH 350.1.13.10 ity of [place] [id number] [facility] 316 [place] 2020-04-10 2020-04-10 Office Taran [facility] [id number] Univers 14:34:44 15:04:44 Visit Michael Y HEALTH 350.1.13.10 i ty [place] [id number] [place] [address] [place] 2020-04-10 2020-04-10 Outpatient R [facility] [id number] Univers 14:30:00 14:30:00 MICHAEL ity of [facility] 2020-04-10 2020-04-10 Orders Doctor CHINO [id number] Univers 00:00:00 00:00:00 Only Unassigned, [place] 350.1.13.10 ity of [place] [facility] 4.2.7.2.686 Sammy as [id number] [facility] 009 [place] Results This patient has no known results.
[2022-03-16] MEDS ORDERED: FAMOTIDINE 20 MG/2 ML VIAL IV ONE (21:11)
[2022-03-16 21:22] LABS: Absolute Lymphocytes (CBC) 1.8 K/uL (0.7-4.9); Hematocrit 46.3 % (39.6-49.0); MCV 83.1 fL (80-100); MPV 8.1 fL (7.6-11.3); RBC Red Blood Cell Count 5.57 M/uL (4.33-5.43)
[2022-03-16 21:33] LABS: Albumin 3.9 g/dL (3.4-5.0); Bilirubin Total 0.3 mg/dL (0.2-1.0); Potassium 3.6 mmol/L (3.5-5.1); Protein, Total 7.7 g/dL (6.4-8.2)
--- NOTE | 2022-03-16 21:55 | RAD REPORT ---
EXAM DESCRIPTION: CT - Abdomen Pelvis W Contrast - 03/16/2022 9:46 pm CLINICAL HISTORY: Abdominal pain/epigastric pain COMPARISON: 2020 TECHNIQUE: Computed axial tomography of the abdomen pelvis was obtained. 100 cc Isovue-300 was admin istered intravenously. Oral contrast was not requested which limits evaluation of bowel and appendix All CT scans are performed using dose optimization technique as appropriate and may include automated exposure control or mA/KV adjustment according to patient size. FINDINGS: Cholecystectomy The liver, spleen, pancreas, adrenal and kidneys appear unremarkable. There is no evidence of diverticulitis. Normal appendix Small umbilical hernia. Mild compression deformity L1 vertebral body which is chronic IMPRESSION: No acute abnormality is displayed.
--- NOTE | 2022-03-16 22:00 | EDPHYS ---
Physician Documentation [facility] Name: Will Hemphill Age: 31 yrs Sex: Male : 1990 Arrival Date: 03/16/2022 Time: 20:25 Bed 20 Private MD: ED Physician Miguelangel Mendoza HPI: 03/16 20:46 This 31 yrs old Male presents to ER via Unassigned with complaints of Abdominal Pain, rn Back Pain. 20:46 The patient presents with abdominal pain in the epigastric area. Onset: The rn symptoms/episode began/occurred 1 week(s) ago. The symptoms radiate to back. Associated signs and symptoms: Pertinent positives: nausea, Pertinent negatives: anorexia, blood in stools, chest pain, constipation, diarrhea, fever, shortness of breath, vomiting blood. The symptoms are described as achy. Modifying factors: The symptoms are alleviated by food, the symptoms are aggravated by 30 min after eating. Severity of pain: At its worst the pain was moderate in the emergency department the pain has resolved. The patient has experienced similar episodes in the past. The patient has not recently seen a physician. Pt reports epigastric abd pain, radiates to back, no fever/vomiting/change in bowel habits. REports pain a little better when eating, but worsens 30min to 1 hour later. Has IBS. Also has GI appt in 3 days with his GI doctor. No blood in stool. . Historical: - PMHx: 22:21 Irritable bowel syndrome; jj7 - Family history:: not pertinent. - Social history:: Smoking status: unknown. - Hospitalizations: : No recent hospitalization is reported. ROS: 20:46 Constitutional: Negative for fever, chills, and weight loss, Eyes: Negative for injury, rn pain, redness, and discharge, Neck: Negative for injury, pain, and swelling, Cardiovascular: Negative for chest pain, palpitations, and edema, Respiratory: Negative for shortness of breath, cough, wheezing, and pleuritic chest pain, Abdomen/GI: + epigastric abd pain Back: Negative for injury MS/Extremity: Negative for injury and deformity, Skin: Negative for injury, rash, and discoloration, Neuro: Negative for headache, weakness, numbness, tingling, and seizure. Exam: 20:46 Constitutional: This is a well developed, well nourished patient who is awake, alert, rn and in no acute distress. Ambulatory to room without difficulty Head/Face: Normocephalic, atraumatic. Cardiovascular: Regular rate and rhythm. No pulse deficits. Respiratory: No increased work of breathing, no retractions or nasal flaring. Abdomen/GI: Soft, non-tender Back: No spinal tenderness. No costovertebral tenderness. Full range of motion. Skin: Warm, dry MS/ Extremity: Pulses equal, no cyanosis. Neuro: Awake and alert, GCS 15 Vital Signs: 21:03 BP 135 / 76; Pulse 62; Resp 18; Temp 97.1(O); Pulse Ox 98% on R/A; Weight 123.83 kg; kl Height 6 ft. 3 in. (190.50 cm); 21:52 BP 134 / 89; Pulse 66; Resp 17; Pulse Ox 99% ; Pain 0/10; jj7 22:19 BP 132 / 86; Pulse 67; Resp 20; Pulse Ox 99% ; Pain 0/10; jj7 21:03 Body Mass Index 34.12 (123.83 kg, 190.50 cm) kl MDM: 20:35 Patient medically screened. rn 21:58 Differential diagnosis: gastritis, gastroesophageal reflux disease, non-specific abd rn pain, pancreatitis, Peptic Ulcer Disease. Data reviewed: vital signs, nurses notes, lab test result(s), radiologic studies, CT scan, and as a result, I will discharge patient. Counseling: I had a detailed discussion with the patient and/or guardian regarding: the historical points, exam findings, and any diagnostic results supporting the discharge/admit diagnosis, lab results, radiology results, the need for outpatient follow up, to return to the emergency department if symptoms worsen or persist or if there are any questions or concerns that arise at home. Response to treatment: the patient's symptoms have markedly improved after treatment, and as a result, I will discharge patient. Special discussion: Based on the patient's Hx, exam, and Dx evaluation, there is no indication for emergent surgery or inpatient Tx. It is understood by the patient/guardian that if the Sx's persist or worsen they need to return immediately for re-evaluation. I discussed with the patient/guardian in detail that at this point there is no indication for admission to the hospital. It is understood, however, that if the symptoms persist or worsen the patient needs to return immediately for re-evaluation. Based on the history and exam findings, there is no indication for further emergent testing or inpatient evaluation. I discussed with the patient/guardian the need to see the agricultural lender for further evaluation of the symptoms. 03/16 20:44 Order name: CBC with Diff; Complete Time: 21:33 rn 03/16 20:44 Order name: CMP; Complete Time: 21:33 rn 03/16 20:44 Order name: Lipase; Complete Time: 21:33 rn 03/16 20:44 Order name: CT Abd/Pelvis - IV Contrast Only; Complete Time: 21:58 rn 03/16 20:44 Order name: IV Saline Lock; Complete Time: 21:15 rn 03/16 20:44 Order name: Labs collected and sent; Complete Time: 21:51 rn Administered Medications: 21:15 Drug: Pepcid (famotidine) 20 mg Route: IVP; Infused Over: 2 mins; Site: right cg antecubital; Disposition Summary: 03/16/22 21:59 Discharge Ordered Location: Home rn Problem: new rn Symptoms: have improved rn Condition: Stable rn Diagnosis - Abdominal pain, unspecified rn Followup: rn - With: Private Physician - When: As needed - Reason: Recheck today's complaints, Re-evaluation by your physician Discharge Instructions: - Discharge Summary Sheet rn - Abdominal Pain, Adult rn Forms: - Medication Reconciliation Form rn - Thank You Letter rn - Antibiotic intern architect - Prescription Opioid Use rn Prescriptions: - Protonix 40 mg Oral Tablet - take 1 tablet by ORAL route once daily; 30 tablet; Refills: 0, Product rn Selection Permitted Signatures: Dispatcher [employer] Miguelangel Coto MD MD rn Garcia, Cindy RN Fallon Arriaga RN RN jj7
--- NOTE | 2022-03-16 22:00 | ER ---
Nurse's Notes [facility] Name: Will Hemphill Age: 31 yrs Sex: Male : 1990 Arrival Date: 03/16/2022 Time: 20:25 Bed 20 [facility] MD: Diagnosis: Abdominal pain, unspecified Presentation: 03/16 21:03 Chief complaint: Patient states: nausea and diaphoresis. Coronavirus screen: Vaccine kl status: Patient reports being unvaccinated. Ebola Screen: Patient negative for fever greater than or equal to 101.5 degrees Fahrenheit, and additional compatible Ebola Virus Disease symptoms. Initial Sepsis Screen: Does the patient meet any 2 criteria? No. Patient's initial sepsis screen is negative. Does the patient have a suspected source of infection? No. Patient's initial sepsis screen is negative. Risk Assessment: Do you want to hurt yourself or someone else? Patient reports no desire to harm self or others. Onset of symptoms was March 16, 2022. 21:03 Method Of Arrival: Ambulatory kl 21:03 Acuity: PABLO 3 kl Triage Assessment: 21:05 General: Appears uncomfortable, Behavior is calm, cooperative. Pain: Complains of pain kl in right upper quadrant and left upper quadrant Pain radiates to back. EENT: No deficits noted. No signs and/or symptoms were reported regarding the EENT system. Neuro: No deficits noted. Cardiovascular: No deficits noted. Respiratory: No deficits noted. GI: No deficits noted. Reports upper abdominal pain. : No deficits noted. No signs and/or symptoms were reported regarding the genitourinary system. Derm: No deficits noted. No signs and/or symptoms reported regarding the dermatologic system. Musculoskeletal:. Historical: - PMHx: 22:21 Irritable bowel syndrome; jj7 - Family history:: not pertinent. - Social history:: Smoking status: unknown. - Hospitalizations: : No recent hospitalization is reported. Screenin:52 Abuse screen: Denies threats or abuse. Nutritional screening: No deficits noted. jj7 Tuberculosis screening: No symptoms or risk factors identified. Fall Risk None identified. Assessment: 21:52 Reassessment: ASSUMED CARE OF PT. PT SITTING IN BED. STATES NAUSEA AND ABD PAIN IS NOW jj7 RESOLVED. NO PAIN OR DISCOMFORT AT THIS TIME. VS STABLE SEE TRIAGE ASSESSMENT. Vital Signs: 21:03 BP 135 / 76; Pulse 62; Resp 18; Temp 97.1(O); Pulse Ox 98% on R/A; Weight 123.83 kg; Height 6 ft. 3 in. (190.50 cm); 21:52 BP 134 / 89; Pulse 66; Resp 17; Pulse Ox 99% ; Pain 0/10; jj7 22:19 BP 132 / 86; Pulse 67; Resp 20; Pulse Ox 99% ; Pain 0/10; jj7 21:03 Body Mass Index 34.12 (123.83 kg, 190.50 cm) ED Course: 20:25 Patient arrived in ED. ja2 20:35 Miguelangel Mendoza MD is Attending Physician. rn 21:05 Triage completed. 21:10 CBC with Diff Sent. 21:10 CMP Sent. 21:10 Lipase Sent. cg 21:33 Inserted saline lock: 20 gauge in right antecubital area, using aseptic technique. cg 21:48 CT Abd/Pelvis - IV Contrast Only In Process Unspecified. EDFL 21:51 Fallon Sawyer RN is Primary Nurse. jj7 21:52 No provider procedures requiring assistance completed. jj7 21:52 Patient has correct armband on for positive identification. Bed in low position. Call jj7 light in reach. Adult w/ patient. 21:52 Patient placed in the treatment room, on a stretcher. jj7 22:17 IV discontinued, intact, bleeding controlled, No redness/swelling at site. jj7 Administered Medications: 21:15 Drug: Pepcid (famotidine) 20 mg Route: IVP; Infused Over: 2 mins; Site: right cg antecubital; Medication: 21:52 VIS not applicable for this client. jj7 Outcome: 21:59 Discharge ordered by . rn 22:17 Discharged to home ambulatory, with family. jj7 22:17 Condition: improved 22:17 Discharge instructions given to patient, Instructed on discharge instructions, medication usage, Demonstrated understanding of instructions, medications, Prescriptions given X 1. 22:25 Patient left the ED. jj7 Signatures: Dispatcher [employer] EDMS Jaqui Estrella RN RN Miguelangel Mendoza MD MD rn Garcia, Cindy, RN RN cg Alexander, Jessica [facility] Fallon Sawyer RN RN jj7
[2022-03-16 23:47] VITALS: TEMP 97.1
[2022-03-16 23:48] VITALS: O2SAT 99
[2022-03-16 23:49] VITALS: BP 132/86
== END 2022-03-16 22:25 | disposition home or self-care (01) ==
LOC: ER 20:20
DX: R10.13 Epigastric pain (principal); R11.0 Nausea
CPT/HCPCS: 85025; 36415; 83690; 80053; 74177; 96374; 99284; Q9967

== ENCOUNTER 2022-12-05 11:59 | Emergency (ER) | payer OTHER, SELFPAY ==
--- OUTSIDE RECORDS SUMMARY | 2022-12-05 12:02 | XMS REPORT | Continuity of Care Document ---
:1990 Author Organization [facility] t Address [address] [facility] [address] [place] [address] Care Team Providers Name Role Phone CARMEN ALBERTO Primary Care Physician Unavailable MICHAEL SZYMANSKI Attending Clinician Unavailable Michael Pinto Attending Clinician Dariel Smiley DO Attending Clinician Doctor Unassigned, [place] Attending Clinician Unavailable Regis Mckay MD Attending Clinician REGIS MCKAY Attending Clinician Unavailable [facility] Attending Clinician Unavailable Payers Payer Name Policy Type Policy Number Effective Date Expiration Date Conrad vaughn [facility] [id number] 2020 00:00:00 Problems Condition Condition Condition Status Onset Resolution Last Treating Co mments Source Name Details Category Date Date Treatment Clinician Date No known No known Disease Unive rs active active ity of problems problems [facility] Allergies, Adverse Reactions, Alerts Allergy Allergy Status Severity Reaction(s) Onset Inactive Treating Comm ents Source Name Type Date Date Clinician NO KNOWN Drug Active Univers ALLERGIE Class ity of S [facility] Social History Social Habit Start Date Stop Date Quantity Comments Source Exposure to 2022-09-11 2022-09-21 Not sure [facility]-CoV-2 00:00:00 14:14:00 [facility] (event) [place] Tobacco use and 2020-05-01 2020-05-01 Smokeless tobacco Un iversity of exposure 00:00:00 00:00:00 non-user [facility] Sex Ass[birth year] At [birth year] Universit y of 00:00:00 00:00:00 [facility] Smoking Status Start Date Stop Date Source Never smoked tobacco [facility] Medications Ordered Filled Start Stop Current Ordering Indication Dosage Frequency Signature Comments Components Source Medication Medication Date Date Medication? Clinician (SIG) Name Name ras 2022- Yes [id number] 1{packe Take 1 Univers ine 4 gram 4-27 10-25 t} Packet by ity of packet 00:00: 04:59 mouth in [place] 00 :[address] [facility] and 1 Packet at noon and 1 Packet in the evening. Do all this for 180 days. cholestyram 2022- Yes [id number] 1{packe Take 1 Univers ine 4 gram 4-27 10-25 t} Packet by ity of packet 00:00: 04:59 mouth in [place] 00 :00 [facility] and 1 Packet at noon and 1 Packet in the evening. Do all this for 180 days. diazePAM 2021-05 Yes 5mg Take 5 mg Un martha mg tablet 0-21 by mouth ity of 14:07: daily. [address] diazePAM 5 2021-05 Yes 5mg Take 5 mg Un martha mg tablet 0-21 by mouth ity of 14:07: daily. [address] diazePAM 5 2021-05 Yes 5mg Take 5 mg Un martha mg tablet 0-21 by mouth ity of 14:07: daily. [address] diazePAM 5 2021-05 Yes 5mg Take 5 mg Un martha mg tablet 0-21 by mouth ity of 14:07: daily. [address] diazePAM 5 2021-05 Yes 5mg Take 5 mg Un martha mg tablet 0-21 by mouth ity of 14:07: daily. [address] diazePAM 5 2021-05 Yes 5mg Take 5 mg Un martha mg tablet 0-21 by mouth ity of 14:07: daily. [address] pantoprazol 2021-05- No [id number] 40mg Take 1 Univers e 40 mg EC 0-21 01-20 tablet by ity of tablet 00:00: 05:59 mouth in [place] 00 :00 [facility] for 90 days. pantoprazol 2021-05- No [id number] 40mg Take 1 Univers e 40 mg EC 0-21 01-20 tablet by ity of tablet 00:00: 05:59 mouth in [place] 00 :00 the Medical morning Branch for 90 days. pantoprazol 2021-05- No [id number] 40mg Take 1 Univers e 40 mg EC 0-21 01-20 tablet by ity of tablet 00:00: 05:59 mouth in [place] 00 :00 the Medical morning Branch for 90 days. cholestyram 2021-05 Yes 4g 4 g. Univer s ine 4 gram 0-19 ity of packet 00:00: [place] 00 Medical Branch cholestyram 2021-05 Yes 4g 4 g. Univer s ine 4 gram 0-19 ity of packet 00:00: [place] 00 Medical Branch cholestyram 2021-05 Yes 4g 4 g. Univer s ine 4 gram 0-19 ity of packet 00:00: [place] 00 Medical Branch cholestyram 2021-05 Yes 4g 4 g. Univer s ine 4 gram 0-19 ity of packet 00:00: [place] 00 Medical Branch cholestyram 2021-05- No 4g 4 g. Unive rs ine 4 gram 0-19 04-27 ity of packet 00:00: 00:00 [place] 00 :00 Medical Branch cholestyram 2021-05- No 4g 4 g. Unive rs ine 4 gram 0-19 04-27 ity of packet 00:00: 00:00 [place] 00 :00 Medical Branch diazePAM 5 Yes 5mg Take 5 mg Un martha mg tablet 4-21 by mouth ity of 14:45: daily. [place] 12 Medical Branch cholestyram 2021- No [id number] 2g Take 0.5 Univers ine 4 gram 4-21 10-19 Packets by it y of powder 00:00: 04:59 mouth 3 [place] 00 :00 (three) Medical times Branch daily with meals for 180 days. PEPPERMINT 2020-05 Yes 2{tbl} Take 2 Uni vers OIL ORAL 0-21 tablets by ity o f 14:12: mouth. [place] 39 Take Medical tablets Branch with meals for abdominal pain PEPPERMINT 2020-05 Yes 2{tbl} Take 2 Uni vers OIL ORAL 0-21 tablets by ity o f 14:12: mouth. [place] 39 Take Medical tablets Branch with meals for abdominal pain PEPPERMINT 2020-05 Yes 2{tbl} Take 2 Uni vers OIL ORAL 0-21 tablets by ity o f 14:12: mouth. [place] 39 Take Medical tablets Branch with meals for abdominal pain PEPPERMINT 2020-05 Yes 2{tbl} Take 2 Uni vers OIL ORAL 0-21 tablets by ity o f 14:12: mouth. [place] 39 Take Medical tablets Branch with meals for abdominal pain PEPPERMINT 2020-05 Yes 2{tbl} Take 2 Uni vers OIL ORAL 0-21 tablets by ity o f 14:12: mouth. [place] 39 Take Medical tablets Branch with meals for abdominal pain PEPPERMINT 2020-05 Yes 2{tbl} Take 2 Uni vers OIL ORAL 0-21 tablets by ity o f 14:12: mouth. [place] 39 Take Medical tablets Branch with meals for abdominal pain PEPPERMINT 2020-05 Yes 2{tbl} Take 2 Uni vers OIL ORAL 0-21 tablets by ity o f 14:12: mouth. [place] 39 Take Medical tablets Branch with meals for abdominal pain omeprazole Yes 40mg Take 1 Unive rs 40 mg 5-10 capsule by ity of capsule 00:00: mouth [place] 00 every Medical Tuesday, Branch Tuesday and Tuesday. omeprazole 2021- No 40mg Take 1 Univ ers 40 mg 5-10 10-21 capsule by ity of capsule 00:00: 00:00 [facility] 00 :00 every Medical Tuesday, Branch Tuesday and Tuesday. omeprazole 2020-0 2021- No 40mg Take 1 Univ ers 40 mg 5-10 10-21 capsule by ity of capsule 00:00: 00:00 [facility] 00 :00 every Medical Tuesday, Branch Tuesday and Tuesday. omeprazole 0 2021- No 40mg Take 1 Univ ers 40 mg 5-10 10-21 capsule by ity of capsule 00:00: 00:00 [facility] 00 :00 every Medical Tuesday, Branch Tuesday and Tuesday. Vital Signs Vital Name Observation Time Observation Value Comments Source Systolic blood 2022-03-19 19:06:00 129 mm[Hg] Univer sity of pressure [facility] Diastolic blood 2022-03-19 19:06:00 79 mm[Hg] Unive rsity of pressure [facility] Heart rate 2022-03-19 19:06:00 65 /min [facility] Body temperature 2022-03-19 19:06:00 36.22 Kristi [facility] ersity of [facility] Body height 2022-03-19 19:06:00 190.5 cm Universi ty of [facility] Body weight 2022-03-19 19:06:00 124.603 kg Universi ty [facility] BMI 2022-03-19 19:06:00 34.34 kg/m2 Universi ty [facility] Systolic blood 2021-09-17 19:44:00 126 mm[Hg] Univer sity of pressure [facility] Diastolic blood 2021-09-17 19:44:00 77 mm[Hg] Unive rsity of pressure [facility] Heart rate 2021-09-17 19:44:00 82 /min Universi ty [facility] Body temperature 2021-09-17 19:44:00 36.61 Kristi [facility] 2021-09-17 19:44:00 16 /min [facility] ersity of [facility] Body height 2021-09-17 19:44:00 190.5 cm Universi ty of [facility] Body weight 2021-09-17 19:44:00 128.822 kg Universi [facility] BMI 2021-09-17 19:44:00 35.50 kg/m2 [facility] Procedures This patient has no known procedures. Encounters Start End Encounter Admission Attending Care Care Encounter Source Date/Time Date/Time Type Type Clinicians Facility Department ID 2022-09-23 2022-09-23 ALEXANDER Esteban [id number] [id number] Univers 14:30:00 15:00:00 ne Visit [facility] 350.1.13.10 ity of [facility] [place] [id number] [facility] 071 Branch 2022-09-23 2022-09-23 Outpatient R TARAN [facility] [id number] Univers 14:30:00 14:30:00 [facility] 2022-06-25 2022-06-25 ALEXANDER Esteban [id number] Univers 13:30:00 14:00:00 ne Visit Michael Y HEALTH 350.1.13.10 it[place] [id number] [address] 2022-06-25 2022-06-25 Outpatient R TARAN [facility] [id number] Univers 13:30:00 13:30:00 MICHAEL ity of [facility] 2022-03-19 2022-03-19 Office ALEXANDER Szymanski [id number] Univers 14:00:00 14:30:00 Visit Michael Y HEALTH 350.1.13.10 i ty [place] [id number] [address] 2022-03-19 2022-03-19 Outpatient R TARAN [facility] [id number] Univers 14:00:00 14:00:00 MICHAEL ity of [facility] 2021-09-17 2021-09-17 Office ALEXANDER Szymanski [id number] Univers 14:00:00 14:30:00 Visit Michael Y HEALTH 350.1.13.10 i ty [place] [id number] [address] 2021-09-17 2021-09-17 Outpatient R TARAN [facility] [id number] Univers 14:00:00 14:00:00 MICHAEL ity of [facility] 2021-04-29 2021-04-29 Patient Taran [facility] [id number] Univers 00:00:00 00:00:00 Secure Msg Michael SPECIALTY 350.1.13.10 ity [place] AT [id number] [address] 2021-03-19 2021-03-19 Office ALEXANDER Szymanski [id number] Univers 14:00:46 14:52:19 Visit Michael Y HEALTH 350.1.13.10 i ty [place] [id number] [address] 2021-03-19 2021-03-19 Outpatient R TARAN [facility] [id number] Univers 14:00:00 14:00:00 MICHAEL ity of [facility] 2020-11-13 2020-11-13 Patient ROBSON SzymanskiIT [id number] 00:00:00 00:00:00 Secure Msg Michael Y HEALTH 350.1.13.10 CLINICS 4.2.7.2.[id number] [facility] 2020-11-13 2020-11-13 Patient ROBSON Szymanski [id number] Univers 00:00:00 00:00:00 Secure Msg Michael Y HEALTH 350.1.13.10 ity [place] [id number] [address] 2020-10-06 2020-10-06 Patient ROBSON Szymanski [id number] Univers 00:00:00 00:00:00 Secure Msg Michael Y HEALTH 350.1.13.10 ity [place] [id number] [address] 2020-10-06 2020-10-06 Patient ROBSON Szymanski [id number] 00:00:00 00:00:00 Secure Msg Michael Y HEALTH 350.1.13.10 CLINICS 4.2.7.2.[id number] [facility] 2020-09-18 2020-09-18 Office Taran ROBSON [id number] [facility] 14:11:09 14:39:36 Visit Michael Y HEALTH 350.1.13.10 i ty [place] [id number] [address] 2020-09-18 2020-09-18 Office Taran ROBSON [id number] 14:11:09 14:39:36 Visit Michael Y HEALTH 350.1.13.10 CLINICS 4.2.7.2.[id number] [facility] 2020-09-18 2020-09-18 [facility] [id number] Univers 14:00:00 14:00:00 MICHAEL [facility] 2020-08-19 2020-08-19 Patient [facility] [id number] Univers 00:00:00 00:00:00 Outreach Dariel PRIMARY 350.1.13.10 i ty of [place] [id number] Ca dical [address] [place] 2020-08-11 2020-08-11 [facility] [id number] Univers 00:00:00 00:00:00 Secure Msg Michael SPECIALTY 350.1.13.10 ity [place] [id number] Ca dical [place] [id number] [facility] 2020-07-31 2020-07-31 Office ALEXANDER Szymanski [id number] Univers 14:03:20 14:35:02 Visit Micheal Y HEALTH 350.1.13.10 i ty [place] [id number] [address] 2020-07-31 2020-07-31 [facility] [id number] Univers 14:00:00 14:00:00 [facility] 2020-07-21 2020-07-21 Patient ROBSON SzymanskiIT [id number] Univers 00:00:00 00:00:00 Secure Msg Michael Y HEALTH 350.1.13.10 ity [place] [id number] [address] 2020-07-16 2020-07-16 Patient ROBSON SzymanskiIT [id number] Univers 00:00:00 00:00:00 Secure Msg Michael Y HEALTH 350.1.13.10 ity of CL[place] [id number] [place] 983251 [place] 2020-06-27 2020-06-27 Telephone ALEXANDER Szymanski 1.2.840.114 [id number] Univers 00:00:00 00:00:00 Michael Y HEALTH 350.1.13.10 i ty [place] [id number] [address] 2020-05-19 2020-05-19 Refill Doctor [facility] [id number] Univers 00:00:00 00:00:00 Unassigned, Y HEALTH 350.1.13.10 ity of [place] [id number] [address] 2020-05-06 2020-05-06 Patient Taran [facility] [id number] Univers 00:00:00 00:00:00 Secure Msg Michael Y HEALTH 350.1.13.10 ity [place] [id number] [address] 2020-05-05 2020-05-05 Orders Doctor CHINO [id number] [id number] Univers 00:00:00 00:00:00 Only Unassigned, [place] 350.1.13.10 ity of [place] [facility] 4.2.7.2.686 Sammy as [id number] [address] 2020-05-01 2020-05-01 Office Taran [facility] [id number] Univers 14:02:59 14:32:59 Visit Michael Y HEALTH 350.1.13.10 i ty [place] [id number] [address] 2020-05-01 2020-05-01 Outpatient R TARAN [facility] [id number] Univers 14:00:00 14:00:00 MICHAEL ity of [facility] 2020-04-14 2020-04-14 [facility] [id number] Univers 00:00:00 00:00:00 Secure Msg Michael SPECIALTY 350.1.13.10 ity [place] [id number] Ca [facility] 2020-04-11 2020-04-11 [facility] JEFF Mckay 1.2.840.114 [id number] Univers 13:12:00 23:59:00 Encounter Regis Bermeo 350.1.13.10 ity of BUILDING 4.2.7.2.686 Sammy as [id number] [facility] 031 [place] 2020-04-11 2020-04-11 Out[facility] ACO [id number] Univers 00:00:00 00:00:[address] [facility] 2020-04-10 2020-04-10 Master Machinist [facility] UNIVERSIT [id number] [id number] Univers 15:24:04 15:30:45 Visit Michael Szymanski [facility] 350.1.13.10 ity of CL[place] [id number] [facility] [address] [place] 2020-04-10 2020-04-10 Office ALEXANDER Szymanski [id number] Univers 14:34:44 15:04:44 Visit [facility] 350.1.13.10 i ty of CL[place] [id number] [facility] 071 [place] 2020-04-10 2020-04-10 [facility] [id number] Univers 14:30:00 14:30:00 MICHAEL [facility] 2020-04-10 2020-04-10 Orders Doctor CHINO 1.2.840.114 [id number] Univers 00:00:00 00:00:00 Only Unassigned, [place] 350.1.13.10 ity of [place] [facility] 4.2.7.2.686 Sammy as [id number] [facility] 009 Branch Results This patient has no known results.
[2022-12-05] MEDS ORDERED: ONDANSETRON 4 MG/2 ML VIAL ONE (12:34)
[2022-12-05] MEDS ORDERED: FAMOTIDINE 20 MG/2 ML VIAL IV ONE (12:34)
[2022-12-05] MEDS ORDERED: NA CHLORIDE 0.9% 1,000 ML ONE (12:34)
[2022-12-05] MEDS ORDERED: KETOROLAC 30 MG/ML INJ ONE (12:34)
[2022-12-05] MEDS ORDERED: MORPHINE 4 MG/ML SYR ONE (12:34)
[2022-12-05 12:43] LABS: Absolute Lymphocytes (CBC) 1.1 K/uL (0.7-4.9); Hematocrit 47.9 % (39.6-49.0); Lymphocytes % 11.6 % (15.3-44.8); MPV 8.1 fL (7.6-11.3)
[2022-12-05 12:48] LABS: Specific Gravity < 1.005 (1.005-1.030); Urine Bilirubin NEGATIVE (Negative); Urine Blood Negative (Negative); Urine Clarity Clear (Clear); Urine Color Light-Yellow (Yellow); Urine Glucose NEGATIVE (Negative); Urine Protein NEGATIVE (Negative); Urine Urobilinogen Normal (Normal); Urine pH 6.5 (5.0-7.0)
[2022-12-05 13:22] LABS: Albumin 3.7 g/dL (3.4-5.0); Bilirubin Total 0.3 mg/dL (0.2-1.0); Potassium 3.4 mEq/L (3.5-5.1); Protein, Total 7.8 g/dL (6.4-8.2)
--- NOTE | 2022-12-05 14:20 | RAD REPORT ---
EXAM DESCRIPTION: CT - Abdomen Pelvis W Contrast - 12/05/2022 1:46 pm CLINICAL HISTORY: ABD PAIN COMPARISON: Abdomen Pelvis W Contrast dated 03/16/2022; Abdomen Pelvis W Contrast dated 03/25/20 20; Abdomen Pelvis W Contrast dated 01/08/2019; CT ABD PELVIS W CONTRAST dated 07/26/2015 TECHNIQUE: Thin cut axial CT imaging of the abdomen and pelvis was performed following intravenous a dministration of 90 mL Isovue 300. Multiplanar reformats were generated and reviewed. All CT scans are performed using dose optimization technique as appropriate and may include automated exposure control or mA/KV adjustment according to patient size. FINDINGS: No suspicious findings in the lung bases. The liver, spleen, and pancreas show no suspicious findings. Gallbladder was surgically removed. No i ntra or extrahepatic biliary ductal dilation Symmetric renal function is seen with no hydronephrosis or suspicious renal mass. Mildly dilated long segment of small bowel in the right flank, with air-fluid levels, as well as wall thickening and mucosal enhancement, see axial images 47-53 among others. No free air, free fluid or inflammatory stranding. No suspicious mass or bulky lymphadenopathy. Small fat containing umbilical h ernia, stable. The urinary bladder is without significant finding. No suspicious bony findings. Stable moderate compression deformity due to remote superior endplate co mpression fracture at L1. IMPRESSION: Long segment of right flank small bowel dilation with wall thickening and mucosal hypere nhancement, most suggestive of segmental enteritis. This could be of infectious or inflammatory etiol ogy. No other suspicious findings in the abdomen and pelvis.
[2022-12-05] MEDS ORDERED: CIPROFLOXACIN 400mg IV 400 MG/200 ML BAG IV ONE (15:29)
[2022-12-05] MEDS ORDERED: METRONIDAZOLE 500mg IVPB 500 MG/100 ML BAG IV ONE (15:30)
[2022-12-05] MEDS ORDERED: CEFTRIAXONE 1000 MG/VIAL ONE (15:30)
[2022-12-05] MEDS ORDERED: NA CHLORIDE 0.9% 50 ML ONE (15:30)
[2022-12-05] MEDS ORDERED: POTASSIUM 25 MEQ EFFERV TAB ONE (15:30)
--- NOTE | 2022-12-05 15:31 | EDPHYS ---
Physician Documentation [facility] Name: Will Hemphill Age: 32 yrs Sex: Male : 1990 Arrival Date: 12/05/2022 Time: 11:59 Bed 18 Private MD: IRA Physician Milo King HPI: 12/05 15:22 This 32 yrs old Male presents to ER via Ambulatory with complaints of deya Abdominal Pain, Back Pain. 15:23 The patient presents with pain that is acute, with no known mechanism of injury. The edya symptoms are located in the right mid back and right low back. Onset: The symptoms/episode began/occurred 1 day(s) ago. The pain does not radiate. Associated signs and symptoms: The patient has no apparent associated signs or symptoms. Severity of symptoms: At their worst the symptoms were mild, moderate, in the emergency department the symptoms are unchanged. The patient has not experienced similar symptoms in the past. Historical: - Allergies: 12:04 No Known Allergies; ap3 - Home Meds: 12:04 Cholestyramine Light 4 gram Oral powd [Active]; pantoprazole 40 mg oral granules ap3 delayed release for susp packet every morning [Active]; - PMHx: 12:04 Irritable bowel syndrome; ap3 - Immunization history:: Client reports having NOT received the Covid vaccine. - Social history:: Smoking status: Patient denies any tobacco usage or history of. ROS: 15:24 Constitutional: Negative for fever, chills, and weight loss, Eyes: Negative for injury, deya pain, redness, and discharge, ENT: Negative for injury, pain, and discharge, Neck: Negative for injury, pain, and swelling, Cardiovascular: Negative for chest pain, palpitations, and edema, Respiratory: Negative for shortness of breath, cough, wheezing, and pleuritic chest pain, Abdomen/GI: Negative for abdominal pain, nausea, vomiting, diarrhea, and constipation, : Negative for injury, bleeding, discharge, and swelling, MS/Extremity: Negative for injury and deformity, Skin: Negative for injury, rash, and discoloration, Neuro: Negative for headache, weakness, numbness, tingling, and seizure, Psych: Negative for depression, anxiety, suicide ideation, homicidal ideation, and hallucinations, Allergy/Immunology: Negative for hives, rash, and allergies, Endocrine: Negative for neck swelling, polydipsia, polyuria, polyphagia, and marked weight changes, Hematologic/Lymphatic: Negative for swollen nodes, abnormal bleeding, and unusual bruising. 15:24 Abdomen/GI: Positive for abdominal pain, diarrhea, abdominal distension, of the anterior aspect of right lateral abdomen, posterior aspect of right lateral abdomen, right upper quadrant and right lower quadrant. 15:24 Back: Positive for flank pain, on the right. Exam: 15:24 Constitutional: This is a well developed, well nourished patient who is awake, alert, deya and in no acute distress. Head/Face: Normocephalic, atraumatic. Eyes: Pupils equal round and reactive to light, extra-ocular motions intact. Lids and lashes normal. Conjunctiva and sclera are non-icteric and not injected. Cornea within normal limits. Periorbital areas with no swelling, redness, or edema. ENT: Nares patent. No nasal discharge, no septal abnormalities noted. Tympanic membranes are normal and external auditory canals are clear. Oropharynx with no redness, swelling, or masses, exudates, or evidence of obstruction, uvula midline. Mucous membranes moist. Neck: Trachea midline, no thyromegaly or masses palpated, and no cervical lymphadenopathy. Supple, full range of motion without nuchal rigidity, or vertebral point tenderness. No Meningismus. Chest/axilla: Normal chest wall appearance and motion. Nontender with no deformity. No lesions are appreciated. Cardiovascular: Regular rate and rhythm with a normal S1 and S2. No gallops, murmurs, or rubs. Normal PMI, no JVD. No pulse deficits. Respiratory: Lungs have equal breath sounds bilaterally, clear to auscultation and percussion. No rales, rhonchi or wheezes noted. No increased work of breathing, no retractions or nasal flaring. Back: No spinal tenderness. No costovertebral tenderness. Full range of motion. Male : Normal genitalia with no discharge or lesions. Skin: Warm, dry with normal turgor. Normal color with no rashes, no lesions, and no evidence of cellulitis. MS/ Extremity: Pulses equal, no cyanosis. Neurovascular intact. Full, normal range of motion. Neuro: Awake and alert, GCS 15, oriented to person, place, time, and situation. Cranial nerves II-XII grossly intact. Motor strength 5/5 in all extremities. Sensory grossly intact. Cerebellar exam normal. Normal gait. Psych: Awake, alert, with orientation to person, place and time. Behavior, mood, and affect are within normal limits. 15:24 Abdomen/GI: Inspection: abdomen appears normal, Bowel sounds: normal, Palpation: mild abdominal tenderness, in the right upper quadrant and right lower quadrant, Liver: no appreciated palpable abnormalities, Hernia: not appreciated. Vital Signs: 12:02 Pulse 90; Resp 17; Temp 98.2; Pulse Ox 97% ; Weight 127.01 kg; Height 6 ft. 3 in. ; ap3 Pain 1/10; 12:04 BP 145 / 87; ap3 13:21 BP 128 / 75; Pulse 75; Resp 17 S; Pulse Ox 96% on R/A; kc6 14:12 BP 124 / 71; Pulse 75; Resp 19 S; Pulse Ox 97% on R/A; kc6 15:00 BP 122 / 63; Pulse 70; Resp 16; Pulse Ox 96% on R/A; cm10 15:15 Pain 1/10; cm10 16:00 BP 127 / 77; Pulse 70; Resp 16 S; Pulse Ox 97% ; cm10 16:00 BP 121 / 74; Pulse 68; Resp 16 S; Pulse Ox 98% ; cm10 12:02 Body Mass Index 35.00 (127.01 kg, 190.5 cm) ap3 12:02 Pain Scale: Adult ap3 15:15 Pain Scale: Adult cm10 MDM: 12:06 Patient medically screened. [facility] 12/05 12:14 Order name: CBC with Diff; Complete Time: 15:12 [facility] 12/05 12:14 Order name: CMP; Complete Time: 15:12 [facility] 12/05 12:14 Order name: Lipase; Complete Time: 15:12 [facility] 12/05 12:14 Order name: Urinalysis w/ reflexes; Complete Time: 15:12 [facility] 12/05 12:14 Order name: CT Abd/Pelvis - IV Contrast Only; Complete Time: 15:12 [facility] 12/05 12:14 Order name: IV Saline Lock; Complete Time: 12:33 [facility] 12/05 12:14 Order name: Labs collected and sent; Complete Time: 12:33 [facility] Administered Medications: 12:41 Drug: NS 0.9% IV 1000 ml Route: IV; Rate: 1 bolus; Site: right antecubital; kc6 15:14 Follow up: Response: No adverse reaction; IV Status: Completed infusion; IV Intake: cm10 1000ml 12:41 Drug: Famotidine IVP 20 mg Route: IVP; Site: right antecubital; kc6 15:14 Follow up: Response: No adverse reaction cm10 12:41 Drug: TORadol - Ketorolac IVP 15 mg Route: IVP; Site: right antecubital; kc6 15:15 Follow up: Response: No adverse reaction cm10 12:41 Drug: Ondansetron IVP 4 mg Route: IVP; Site: right antecubital; kc6 15:15 Follow up: Response: No adverse reaction cm10 12:41 Drug: morphine IVP or IV 4 mg Route: IVP; Infused Over: 4 mins; Site: right antecubital;kc6 15:15 Follow up: Pain 06/08 Adult; Response: No adverse reaction; Pain is decreased cm10 15:35 Drug: metroNIDAZOLE IVPB 500 mg Volume: 100 ml; Route: IVPB; Rate: 200 ml/hr; Infused cm10 Over: 30 mins; Site: right antecubital; 16:11 Follow up: Response: No adverse reaction; IV Status: Completed infusion; IV Intake: cm10 100ml 15:35 Drug: Rocephin IV 1 grams Route: IV; Rate: per protocol; Site: right antecubital; cm10 15:44 Follow up: Response: No adverse reaction; IV Status: Completed infusion; IV Intake: [id number] 15:35 Drug: Potassium PO Effervescent Tablet 50 mEq Route: PO; cm10 15:45 Follow up: Response: No adverse reaction cm10 16:10 Drug: Ciprofloxacin IVPB 400 mg Volume: 200 ml; Route: IVPB; Infused Over: 60 mins; cm10 Site: right antecubital; Disposition Summary: 12/05/22 15:30 Discharge Ordered Location: Home deya Problem: new deya Symptoms: have improved deya Condition: Stable deya Diagnosis - Other viral enteritis - SMALL BOWEL DILATION, SEGMENTAL ENTERITIS deya - Abdominal tenderness deya - Hypokalemia deya Followup: deya - With: Private Physician - When: 2 - 3 days - Reason: Recheck today's complaints, Continuance of care, Re-evaluation by your physician Followup: deya - With: Cassy Freedman MD - When: 2 - 3 days - Reason: Recheck today's complaints, Re-evaluation by your physician Discharge Instructions: - Discharge Summary Sheet deya - Abdominal Pain, Adult deya - Food Choices to Help Relieve Diarrhea, Adult deya - Diarrhea, Adult deya - Potassium Content of Foods deya - Abdominal Pain, Adult, [id number] deya - Diarrhea, Adult, [id number] [facility] - Hypokalemia [facility] Forms: - Medication Reconciliation Form [facility] - Thank You Letter [facility] - Antibiotic Education [facility] - Prescription Opioid Use [facility] - [email or web address] [facility] Prescriptions: - ondansetron 4 mg Oral Tablet,disintegrating - take 1 tablet by ORAL route every 8 hours; 20 tablet; Refills: 0, Product [facility] Selection Permitted - Flagyl 500 mg Oral Tablet - take 1 tablet by ORAL route every 6 hours for 7 days; 28 tablet; Refills: 0, [facility] Product Selection Permitted - Cipro 500 mg Oral Tablet - take 1 tablet by ORAL route every 12 hours for 7 days; 14 tablet; Refills: 0, [facility] Product Selection Permitted - dicyclomine 20 mg Oral Tablet - take 1 tablet by ORAL route 4 times per day; 28 tablet; Refills: 0, Product [facility] Selection Permitted Signatures: Dispatcher [employer] EDMilo Natarajan MD MD cha Prokisch, Amanda, RN RN ap3 Maeve Jones RN RN kc6 Leti Gross RN RN cm10 Corrections: (The following items were deleted from the chart) 12:19 12:14 Abdomen Limited+[id number].[id number] ordered. EDMS EDMS
--- NOTE | 2022-12-05 15:31 | ER ---
Nurse's Notes [facility] Name: Will Hemphill Age: 32 yrs Sex: Male : 1990 Arrival Date: 12/05/2022 Time: 11:59 Bed 18 Private MD: Diagnosis: Other viral enteritis-SMALL BOWEL DILATION, SEGMENTAL ENTERITIS;Abdominal tenderness;Hypokalemia Presentation: 12/05 12:02 Chief complaint: Patient states: he has been having right side abdominal pain that ap3 radiates to his back since this morning at approx 0930. patient denies NV, and denies any difficulty urinating. Coronavirus screen: At this time, the client does not indicate any symptoms associated with coronavirus-19. Ebola Screen: No symptoms or risks identified at this time. Initial Sepsis Screen: Does the patient meet any 2 criteria? No. Patient's initial sepsis screen is negative. Does the patient have a suspected source of infection? No. Patient's initial sepsis screen is negative. Risk Assessment: Do you want to hurt yourself or someone else? Patient reports no desire to harm self or others. Onset of symptoms was December 05, 2022 at 09:30. 12:02 Method Of Arrival: Ambulatory ap3 12:02 Acuity: PABLO 3 ap3 Triage Assessment: 12:05 General: Appears in no apparent distress. Behavior is calm, cooperative, appropriate ap3 for age. Pain: Complains of pain in right lower quadrant Pain radiates to right low back Pain currently is 1 out of 10 on a pain scale. at worst was 10 out of 10 on a pain scale. Pain began 3 hours ago. Neuro: Level of Consciousness is awake, alert, obeys commands, Oriented to person, place, time, situation. Cardiovascular: Patient's skin is warm and dry. Respiratory: Airway is patent Respiratory effort is even, unlabored, Respiratory pattern is regular, symmetrical. GI: Reports lower abdominal pain. Historical: - Allergies: 12:04 No Known Allergies; ap3 - Home Meds: 12:04 Cholestyramine Light 4 gram Oral powd [Active]; pantoprazole 40 mg oral granules ap3 delayed release for susp packet every morning [Active]; - PMHx: 12:04 Irritable bowel syndrome; ap3 - Immunization history:: Client reports having NOT received the Covid vaccine. - Social history:: Smoking status: Patient denies any tobacco usage or history of. Screenin:05 [facility] ED Fall Risk Assessment (Adult) History of falling in the last 3 months, ap3 including since admission No falls in past 3 months (0 pts). Abuse screen: Denies threats or abuse. Nutritional screening: No deficits noted. Tuberculosis screening: No symptoms or risk factors identified. Assessment: 12:30 General: Appears in no apparent distress. comfortable, Behavior is calm, cooperative, kc6 appropriate for age. Pain: Complains of pain in back and right lower quadrant Pain currently is 5 out of 10 on a pain scale. Neuro: Level of Consciousness is awake, alert, obeys commands, Oriented to person, place, time, situation, Appropriate for age. Cardiovascular: Capillary refill < 3 seconds. Respiratory: Airway is patent Trachea midline Respiratory effort is even, unlabored, Respiratory pattern is regular, symmetrical. GI: Abdomen is flat, non-distended, Bowel sounds present X 4 quads. Abd is soft X 4 quads Abdomen is tender to palpation in right lower quadrant Reports diarrhea, Patient currently denies nausea, vomiting. : No signs and/or symptoms were reported regarding the genitourinary system. EENT: No signs and/or symptoms were reported regarding the EENT system. Derm: No signs and/or symptoms reported regarding the dermatologic system. Skin is intact, is healthy with good turgor, Skin is pink, warm \T\ dry. Musculoskeletal: No signs and/or symptoms reported regarding the musculoskeletal system. Circulation, motion, and sensation intact. Capillary refill < 3 seconds, Range of motion: intact in all extremities. 13:30 Reassessment: Patient appears in no apparent distress at this time. No changes from kc6 previously documented assessment. Patient and/or family updated on plan of care and expected duration. Pain level reassessed. Patient is alert, oriented x 3, equal unlabored respirations, skin warm/dry/pink. 15:15 Reassessment: No changes from previously documented assessment. Patient and/or family cm10 updated on plan of care and expected duration. Pain level reassessed. Patient is alert, oriented x 3, equal unlabored respirations, skin warm/dry/pink. Patient states feeling better. Patient states symptoms have improved. 15:35 Reassessment: Pt awaiting completion of IV ABX for discharge. cm10 Vital Signs: 12:02 Pulse 90; Resp 17; Temp 98.2; Pulse Ox 97% ; Weight 127.01 kg; Height 6 ft. 3 in. ; ap3 Pain 1/10; 12:04 BP 145 / 87; ap3 13:21 BP 128 / 75; Pulse 75; Resp 17 S; Pulse Ox 96% on R/A; kc6 14:12 BP 124 / 71; Pulse 75; Resp 19 S; Pulse Ox 97% on R/A; kc6 15:00 BP 122 / 63; Pulse 70; Resp 16; Pulse Ox 96% on R/A; cm10 15:15 Pain 1/10; cm10 16:00 BP 127 / 77; Pulse 70; Resp 16 S; Pulse Ox 97% ; cm10 16:00 BP 121 / 74; Pulse 68; Resp 16 S; Pulse Ox 98% ; cm10 12:02 Body Mass Index 35.00 (127.01 kg, 190.5 cm) ap3 12:02 Pain Scale: Adult ap3 15:15 Pain Scale: Adult cm10 ED Course: 12:00 Patient arrived in ED. ts1 12:04 Triage completed. ap3 12:05 Arm band placed on left wrist. ap3 12:06 Milo King MD is Attending Physician. deya 12:18 Maeve Jones, ARTEMIO is Primary Nurse. kc6 12:30 Patient has correct armband on for positive identification. Bed in low position. Call kc6 light in reach. Side rails up X 1. Adult w/ patient. 12:30 Inserted saline lock: 20 gauge in right antecubital area, using aseptic technique. kc6 Blood collected. 13:48 CT Abd/Pelvis - IV Contrast Only In Process Unspecified. EDMS 15:08 Primary Nurse role handed off by Maeve Jones, RN cm10 15:08 Leti Gross, RN is Primary Nurse. cm10 15:28 Cassy Freedman MD is Referral Physician. deya 17:14 No provider procedures requiring assistance completed. IV discontinued, intact, cm10 bleeding controlled, No redness/swelling at site. Pressure dressing applied. Administered Medications: 12:41 Drug: NS 0.9% IV 1000 ml Route: IV; Rate: 1 bolus; Site: right antecubital; kc6 15:14 Follow up: Response: No adverse reaction; IV Status: Completed infusion; IV Intake: cm10 1000ml 12:41 Drug: Famotidine IVP 20 mg Route: IVP; Site: right antecubital; kc6 15:14 Follow up: Response: No adverse reaction cm10 12:41 Drug: TORadol - Ketorolac IVP 15 mg Route: IVP; Site: right antecubital; kc6 15:15 Follow up: Response: No adverse reaction cm10 12:41 Drug: Ondansetron IVP 4 mg Route: IVP; Site: right antecubital; kc6 15:15 Follow up: Response: No adverse reaction cm10 12:41 Drug: morphine IVP or IV 4 mg Route: IVP; Infused Over: 4 mins; Site: right antecubital;kc6 15:15 Follow up: Pain 06/08 Adult; Response: No adverse reaction; Pain is decreased cm10 15:35 Drug: metroNIDAZOLE IVPB 500 mg Volume: 100 ml; Route: IVPB; Rate: 200 ml/hr; Infused cm10 Over: 30 mins; Site: right antecubital; 16:11 Follow up: Response: No adverse reaction; IV Status: Completed infusion; IV Intake: cm10 100ml 15:35 Drug: Rocephin IV 1 grams Route: IV; Rate: per protocol; Site: right antecubital; cm10 15:44 Follow up: Response: No adverse reaction; IV Status: Completed infusion; IV Intake: [id number] 15:35 Drug: Potassium PO Effervescent Tablet 50 mEq Route: PO; cm10 15:45 Follow up: Response: No adverse reaction cm10 16:10 Drug: Ciprofloxacin IVPB 400 mg Volume: 200 ml; Route: IVPB; Infused Over: 60 mins; cm10 Site: right antecubital; Medication: 17:14 VIS not applicable for this client. cm10 Intake: 15:14 IV: 1000ml; Total: 1000ml. cm10 15:44 IV: 50ml; Total: 1050ml. cm10 16:11 IV: 100ml; Total: 1150ml. cm10 Outcome: 15:30 Discharge ordered by . deya 17:14 Discharged to home ambulatory, with family. cm10 17:14 Condition: good 17:14 Discharge instructions given to patient, Instructed on discharge instructions, follow up and referral plans. medication usage, Demonstrated understanding of instructions, follow-up care, medications, Prescriptions given X 4. 17:15 Patient left the ED. cm10 Signatures: Dispatcher [employer] EDMS Milo King MD MD cha Prokisch, Amanda RN RN [id number] Maeve Jones RN RN kc6 Claudia Arndt PAS PAS ts1 Leti Gross RN RN cm10 Corrections: (The following items were deleted from the chart) 13:23 13:21 Pulse 75bpm; Resp 17bpm; Spontaneous; Pulse Ox 96% RA; kc6 kc6
[2022-12-05 17:42] VITALS: TEMP 98.2
[2022-12-05 17:51] VITALS: BP 121/74; O2SAT 98
== END 2022-12-05 17:15 | disposition home or self-care (01) ==
LOC: ER 11:59
DX: A08.39 Other viral enteritis (principal); E87.6 Hypokalemia
CPT/HCPCS: 36415; 74177; 80053; 81003; 83690; 85025; 96361; 96365; 96375; 99284; J0696; J0744; J2405; J7030; Q9967

== ENCOUNTER 2024-07-03 17:50 | Emergency (ER) | payer OTHER, SELFPAY ==
--- OUTSIDE RECORDS SUMMARY | 2024-07-03 17:53 | XMS REPORT | Continuity of Care Document ---
Author Name Unknown Address [address] [facility] [address] [place] [address] [facility] thconnect Address [address] [facility] [address] [facility] [address] [place] [address] Care Team Providers Care Command And Control Specialist Name Role Phone Lida SWANSON, Deborah Solomon Primary Care Physician + [phone] ZULEYMA SYED Attending Clinician Unavailable MICHAEL CHIRINOS Attending Clinician Unavailable Michael Pinot Attending Clinician [phone] Zuleyma Syed MD Attending Clinician [phone] KATELIN PEREA Attending Clinician Unavail able Katelin Perea MD Attending Clinician [phone] Doctor Unassigned, [place] Attending Clinician U Michael Marshall Attending Clinician [phone] Dariel Smiley DO Attending Clinician [phone] Regis Mckay MD Attending Clinician [phone] REGIS MCKAY Attending Clinician Unavailabl e [facility] Attending Clinician Unavailable ZULEYMA SYED Admitting Clinician Unavailable Zuleyma Syed MD Admitting Clinician [phone] Payers Payer Name Policy Type Policy Number Effective Date Expirati on Date Source [facility] PPO [id number] 2023 00:00:00 [facility] NEXUS ACO COMM [id number] 2023 00:00:00 Problems Condition Name Condition Details Condition Category Status Onset Date Resolution Date Last Treatment Date Treating Clinician Comments Source Thumb pain, left Thumb pain, left Disease Active 11-08 00:00: 00 Adriana López Abdominal pain, epigastric Abdominal pain, epigastric Disease Active 2022-05 2-15 00:00: 00 [facility] No known active problems No known active problems Disease [facility] Allergies, Adverse Reactions, Alerts Allergy Name Allergy Type Status Severity Reaction(s) Onset Date Inactive Date Treating Clinician Comments Source ALLERGIE S NOT ON FILE SYSTEMIC Active MHEOUT ALLERGIE S NOT ON FILE SYSTEMIC Active [facility]HEOUT NO KNOWN ALLERGIE S Drug Class Active [facility] Social History Social Habit Start Date Stop Date Quantity Comments Source Gender identity Abimael López Sexual orientation M emorikervin López History of Social function 2024-04-03 00:00:00 2024-04-03 00:00:00 [facility] Exposure to SARS-CoV-2 (event) 2022-09-11 00:00:00 2022-09-21 14:14:00 Not sure [facility] Tobacco use and exposure 2020-05-01 00:00:00 2020-05-01 00:00:00 Smokeless tobacco non-user [facility] Sex assigned at 1990 00:00:00 1990 00:00:00 [facility] Smoking Status Start Date Stop Date Source Tobacco smoking consumption unknown [facility] Never smoked tobacco [facility] Medications Ordered Medication Name Filled Medication Name Start Date Stop Date Current Medication? Ordering Clinician Indication Dosage Frequency Signature (SIG) Comments Components Source omeprazole 40 mg capsule 01-04 00:00: 00 Yes [id number] 40mg Take 1 capsule by mouth in the morning. [facility] cholestyram ine 4 gram packet 01-04 00:00: 00 07-04 05:59 :00 No [id number] 1{packe t} Take 1 Packet by mouth in the morning and 1 Packet at noon and 1 Packet in the evening. Do all this for 180 days. [facility] omeprazole 40 mg capsule 2-06 10:27: 45 07-04 00:00 :00 No 40mg Take 1 capsule by mouth in the morning. [facility] omeprazole 40 mg capsule 2-06 00:00: 00 01-01 04:59 :00 No [id number] 40mg Take 1 capsule by mouth in the morning for 180 days. [facility] omeprazole 40 mg capsule 2022-05 215 14:59: 48 Yes 40mg Take 1 capsule by mouth in the morning. [facility] diazePAM 5 mg tablet 2022-05 14:59: 48 Yes 5mg Take 1 tablet by mouth in the morning. [facility] escitalopra m oxalate 20 mg tablet 2022-05 14:59: 48 Yes 20mg Take 1 tablet by mouth in the morning. [facility] cholestyram ine 4 gram packet 2022-05 14:59: 48 01-04 00:00 :00 No 1{packe t} Take 1 Packet by mouth in the morning. [facility] sucralfate 1 gram tablet 2022-05 0-12 00:00: 00 04-10 05:59 :00 No [id number] 1g Take 1 tablet by mouth before meals and at bedtime for 30 days. [facility] omeprazole 40 mg capsule 0 8-29 00:00: 00 04-26 05:59 :00 No [id number] 40mg Take 1 capsule by mouth in the morning for 90 days. [facility] cholestyram ine 4 gram packet 4-27 00:00: 00 03-23 04:59 :00 No [id number] 1{packe t} Take 1 Packet by mouth in the morning. [facility] diazePAM 5 mg tablet 2021-05 0- 14:07: 11 Yes 5mg Take 5 mg by mouth daily. [facility] pantoprazol e 40 mg EC tablet 2021-05 0- 00:00: 00 06-18 05:59 :00 No [id number] 40mg Take 1 tablet by mouth in the morning for 90 days. [facility] cholestyram ine 4 gram packet 2021-05 00:00: 00 09-23 00:00 :00 No 4g 4 g. [facility] diazePAM 5 mg tablet 09-17 14:45: 12 Yes 5mg Take 1 tablet by mouth in the morning. [facility] cholestyram ine 4 gram powder 09-17 00:00: 00 03-17 04:59 :00 No [id number] 2g Take 0.5 Packets by mouth 3 (three) times daily with meals for 180 days. [facility] PEPPERMINT OIL ORAL 2020-05 14:12: 39 Yes 2{tbl} Take 2 tablets by mouth. Take tablets with meals for abdominal pain [facility] omeprazole 40 mg capsule 10-06 00:00: 00 03-19 00:00 :00 No 40mg Take 1 capsule by mouth every Tuesday, Tuesday and Tuesday. [facility] Vital Signs Vital Name Observation Time Observation Value Comments S ource Systolic blood pressure 2024-04-03 21:27:00 133 mm[Hg] [facility] Diastolic blood pressure 2024-04-03 21:27:00 79 mm[Hg] [facility] Heart rate 2024-04-03:27:00 72 /min [facility] Body temperature 2024-04-03:27:00 36.22 Kristi [facility] Respiratory rate 2024-04-03 21::00 18 /min [facility] Body height 2024-04-03 21:27:00 190.5 cm [facility] Body weight 2024-04-03 21:27:00 130.681 kg [facility] BMI 2024-04-03 21:27:00 36.01 kg/m2 [facility] Oxygen saturation in Arterial blood by Pulse oximetry 2024-04-03 21:27:00 94 /min [facility] Systolic blood pressure 2024-02-21 21:00:00 134 mm[Hg] [facility] Diastolic blood pressure 2024-02-21 21:00:00 88 mm[Hg] [facility] Heart rate 2024-02-21 21:00:00 71 /min [facility] Respiratory rate 2024-02-21 21:00:00 22 /min [facility] Body temperature 2024-02-21 20:45:00 36.56 Kristi [facility] Oxygen saturation in Arterial blood by Pulse oximetry 2024-02-21 20:45:00 94 /min [facility] Body height 2024-02-21 19:10:00 190.5 cm [facility] Body weight 2024-02-21 19:10:00 131.498 kg [facility] BMI 2024-02-21 19:10:00 36.24 kg/m2 [facility] Systolic blood pressure 2023-05-13 21:00:00 124 mm[Hg] [facility] Diastolic blood pressure 2023-05-13 21:00:00 85 mm[Hg] [facility] Heart rate 2023-05-13 21:00:00 78 /min [facility] Body temperature 2023-05-13 21:00:00 36.11 Kristi [facility] Respiratory rate 2023-05-13 21:00:00 16 /min [facility] Body height 2023-05-13 21:00:00 190.5 cm [facility] Body weight 2023-05-13 21:00:00 119.795 kg [facility] BMI 2023-05-13 21:00:00 33.01 kg/m2 [facility] Oxygen saturation in Arterial blood by Pulse oximetry 2023-05-13 21:00:00 98 /min [facility] Systolic blood pressure 2022-03-19 19:06:00 129 mm[Hg] [facility] Diastolic blood pressure 2022-03-19 19:06:00 79 mm[Hg] [facility] Heart rate 2022-03-19 19:06:00 65 /min [facility] Body temperature 2022-03-19 19:06:00 36.22 Kristi [facility] Body height 2022-03-19 19:06:00 190.5 cm [facility] Body weight 2022-03-19 19:06:00 124.603 kg [facility] BMI 2022-03-19 19:06:00 34.34 kg/m2 [facility] Systolic blood pressure 2021-09-17 19:44:00 126 mm[Hg] [facility] Diastolic blood pressure 2021-09-17 19:44:00 77 mm[Hg] [facility] Heart rate 2021-09-17 19:44:00 82 /[facility] Body temperature 2021-09-17 19:44:00 36.61 Kristi [facility] Respiratory rate 2021-09-17 19:44:00 16 /min [facility] Body height 2021-09-17 19:44:00 190.5 cm [facility] Body weight 2021-09-17 19:44:00 128.822 kg [facility] BMI 2021-09-17 19:44:00 35.50 kg/m2 [facility] Procedures Procedure Date / Time Performed Performing Clinicia n Source EGD (ENDO) 2024-02-21 20:42:05 Rohit Leyva [facility] EGD (ENDO) 2024-02-21 20:42:05 Rohit Leyva [facility] [id number] [facility] [place] [facility] TRANSORAL BIOPSY SINGLE/MULTIPLE 2024-02-21 20:13:00 Zuleyma Syed [facility] EMG 2023-11-09 17:34:14 Katelin Perea [facility] DISCLOSURE AND CONSENT, MEDICAL AND SURGICAL PROCEDURES 2023-05-13 06:01:00 Doctor Unassigned, [place] [facility] EXTERNAL PROVIDER RECORDS 2023-01-10 05:01:00 Doctor Unassigned, [place] [facility] Encounters Start Date/Time End Date/Time Encounter Type Admission Type Attending [facility] Care Facility Care Department Encounter ID Source 2023-09-07 11:42:53 Outpatient R ZULEYMA SYED [facility] [id number] [facility] 2024-04-03 15:30:00 2024-04-03 16:00:00 Office Visit Michael [facility]ir[facility] 1.2.840.114 350.1.13.10 4.2.7.2.686 [id number] [facility] 2024-04-03 15:30:00 2024-04-03 15:30:00 Outpatient R TARAN MICHAEL [facility] [id number] [facility] 2024-02-21 12:26:00 2024-02-21 16:33:00 Outpatient R ZULEYMA SYED [facility] GIE [id number] [facility] 2024-02-21 12:26:00 2024-02-21 16:33:00 Hospital Encounter Zuleyma Syed [facility] 1.2.840.114 350.1.13.10 4.2.7.2.686 [id number] [facility] 2024-02-21 13:30:00 2024-02-21 14:00:00 Surgery Zuleyma Syed [facility] 1.2.840.114 350.1.13.10 4.2.7.2.686 [id number] [facility] 2024-01-05 00:00:00 2024-01-05 13:33:51 Refill [facility] 1.2.840.114 350.1.13.10 4.2.7.2.686 [id number] [facility] 2024-01-05 00:00:00 2024-01-05 12:34:42 Patient Secure Msg Michael [facility]irinos [facility] 1.2.840.114 350.1.13.10 4.2.7.2.686 [id number] [facility] 2023-11-09 16:11:03 2023-11-09 17:10:43 Outpatient KATELIN PEREA EOUT EOUT [id number] [facility]OUT 2023-11-09 15:45:00 2023-11-09 17:10:43 Procedure Visit Katelin Perea [place] 1.0.114 350.1.13.70 8.2.7.2.686 [id number] [facility] 2023-09-07 00:00:00 2023-10-08 18:06:58 Patient Secure Msg Doctor Unassigned, [place] [facility] 1.0.114 350.1.13.10 4.2.7.2.686 [id number] [facility] 2023-07-04 00:00:00 2023-07-04 00:00:00 [facility] 1.0.114 350.1.13.10 4.2.7.2.686 [id number] [facility] 2023-07-04 00:00:00 2023-07-04 00:00:00 Patient Secure Msg Doctor Unassigned, [place] [facility] 1.20.114 350.1.13.10 4.2.7.2.686 [id number] [facility] 2023-07-01 00:00:00 2023-07-01 00:00:00 Patient Secure Msg [facility] 1..114 350.1.13.10 4.2.7.2.686 [id number] [facility] 2023-05-13 15:00:00 2023-05-13 15:30:00 Office Visit [facility] 1.20.114 350.1.13.10 4.2.7.2.686 [id number] [facility] 2023-05-13 15:00:00 2023-05-13 15:00:00 Outpatient R MICHAEL CHIRINOS [facility] [id number] [facility] 2023-05-13 00:00:00 2023-05-13 00:00:00 Orders Only Doctor Unassigned, [place] [facility] 1.2840.114 350.1.13.10 4.2.7.2.686 [id number] [facility] 2023-04-18 00:00:00 2023-04-18 00:00:00 Telephone [facility] 1.20.114 350.1.13.10 4.2.7.2.686 [id number] [facility] 2023-03-08 00:00:00 2023-03-08 00:00:00 Patient Secure [facility] 1.2840.114 350.1.13.10 4.2.7.2.686 [id number] [facility] 2023-01-24 00:00:00 2023-01-24 00:00:00 Patient Secure [facility] 1.2.840.114 350.1.13.10 4.2.7.2.686 [id number] [facility] 2023-01-10 00:00:00 2023-01-10 00:00:00 Orders Only Doctor Unassigned, [place] [facility] 1.20.114 350.1.13.10 4.2.7.2.686 [id number] [facility] 2022-12-20 00:00:00 2022-12-20 00:00:00 Telephone Michael Chirinos [facility] 1.2840.114 350.1.13.10 4.2.7.2.686 [id number] [facility] 2022-12-20 00:00:00 2022-12-20 00:00:00 Patient Secure Msg [facility] 1.2.840.114 350.1.13.10 4.2.7.2.686 [id number] [facility] 2022-12-10 00:00:00 2022-12-10 00:00:00 Telephone [facility] 1.2.840.114 350.1.13.10 4.2.7.2.686 [id number] [facility] 2022-12-06 00:00:00 2022-12-06 00:00:00 Patient Secure Msg [facility] 1.2.840.114 350.1.13.10 4.2.7.2.686 [id number] [facility] 2022-09-23 14:30:00 2022-09-23 15:00:00 Telemedici ne Visit [facility] 1.2.840.114 350.1.13.10 4.2.7.2.686 [id number] [facility] 2022-09-23 14:30:00 2022-09-23 14:30:00 Outpatient R MICHAEL CHIRINOS [facility] [id number] [facility] 2022-06-25 13:30:00 2022-06-25 14:00:00 Telemedici ne Visit [facility] 1.2.840.114 350.1.13.10 4.2.7.2.686 [id number] [facility] 2022-06-25 13:30:00 2022-06-25 13:30:00 Outpatient R MICHAEL CHIRINOS [facility] [id number] [facility] 2022-03-19 14:00:00 2022-03-19 14:30:00 Office Visit Taran [facility] 1.2840.114 350.1.13.10 4.2.7.2.686 [id number] [facility] 2022-03-19 14:00:00 2022-03-19 14:00:00 Outpatient MICHAEL BOWENS [facility] [id number] [facility] 2021-09-17 14:00:00 2021-09-17 14:30:00 Office Visit Taran [facility] 1.20.114 350.1.13.10 4.2.7.2.686 [id number] [facility] 2021-09-17 14:00:00 2021-09-17 14:00:00 Outpatient MICHAEL BOWENS [facility] [id number] [facility] 2021-04-29 00:00:00 2021-04-29 00:00:00 Patient Secure g Taran [facility] 1.840.114 350.1.13.10 4.2.7.2.686 [id number] [facility] 2021-03-19 14:00:46 2021-03-19 14:52:19 Office Visit Taran Michael [facility] 1.20.114 350.1.13.10 4.2.7.2.686 [id number] [facility] 2021-03-19 14:00:00 2021-03-19 14:00:00 Outpatient Corina CHIRINOS MICHAEL [facility] [id number] [facility] 2020-11-13 00:00:00 2020-11-13 00:00:00 [facility] 1.840.114 350.1.13.10 4.2.7.2.686 [id number] 2020-11-13 00:00:00 2020-11-13 00:00:00 Patient Secure [facility] 1.2.840.114 350.1.13.10 4.2.7.2.686 [id number] [facility] 2020-10-06 00:00:00 2020-10-06 00:00:00 Patient Secure [facility] 1.2.840.114 350.1.13.10 4.2.7.2.686 [id number] 2020-10-06 00:00:00 2020-10-06 00:00:00 Patient Secure [facility] 1.2.840.114 350.1.13.10 4.2.7.2.686 [id number] [facility] 2020-09-18 14:11:09 2020-09-18 14:39:36 Office Visit [facility] 1.2.840.114 350.1.13.10 4.2.7.2.686 [id number] 2020-09-18 14:11:09 2020-09-18 14:39:36 Office Visit [facility] 1.2.840.114 350.1.13.10 4.2.7.2.686 [id number] [facility] 2020-09-18 14:00:00 2020-09-18 14:00:00 Outpatient R TARAN MICHAEL [facility] [id number] [facility] 2020-08-19 00:00:00 2020-08-19 00:00:00 Patient Outreach Dariel Smiley [facility] 1.2.840.114 350.1.13.10 4.2.7.2.686 [id number] [facility] 2020-08-11 00:00:00 2020-08-11 00:00:00 Patient Secure Msg Michael Chirinos [facility] 1.2.840.114 350.1.13.10 4.2.7.2.686 [id number] [facility] 2020-07-31 14:03:20 2020-07-31 14:35:02 Office Visit Taran [facility] 1.2840.114 350.1.13.10 4.2.7.2.686 [id number] [facility] 2020-07-31 14:00:00 2020-07-31 14:00:00 Outpatient R MICHAEL CHIRINOS [facility] [id number] [facility] 2020-07-21 00:00:00 2020-07-21 00:00:00 Patient Secure Msg [facility] 1.2840.114 350.1.13.10 4.2.7.2.686 [id number] [facility] 2020-07-16 00:00:00 2020-07-16 00:00:00 Patient Secure Msg [facility] 1.2.840.114 350.1.13.10 4.2.7.2.686 [id number] [facility] 2020-06-27 00:00:00 2020-06-27 00:00:00 [facility] 1.2840.114 350.1.13.10 4.2.7.2.686 [id number] [facility] 2020-05-19 00:00:00 2020-05-19 00:00:00 Refill Doctor Unassigned, [place] [facility] 1.2840.114 350.1.13.10 4.2.7.2.686 [id number] [facility] 2020-05-06 00:00:00 2020-05-06 00:00:00 Patient Secure [facility] 1.2.840.114 350.1.13.10 4.2.7.2.686 [id number] [facility] 2020-05-05 00:00:00 2020-05-05 00:00:00 Orders Only Doctor Unassigned, [place] [facility] 1.2.840.114 350.1.13.10 4.2.7.2.686 [id number] [facility] 2020-05-01 14:02:59 2020-05-01 14:32:59 [facility] 1.840.114 350.1.13.10 4.2.7.2.686 [id number] [facility] 2020-05-01 14:00:00 2020-05-01 14:00:00 Outpatient Corina MICHAEL CHIRINOS [facility] [id number] [facility] 2020-04-14 00:00:00 2020-04-14 00:00:00 Patient Secure Taran Michael [facility] 1.840.114 350.1.13.10 4.2.7.2.686 [id number] [facility] 2020-04-11 13:12:00 2020-04-11 23:59:00 Hospital Encounter Regis Mckay [facility] 1.840.114 350.1.13.10 4.2.7.2.686 [id number] [facility] 2020-04-11 00:00:00 2020-04-11 00:00:00 Outpatient REGIS CRENSHAW [facility] [id number] [facility] 2020-04-10 15:24:04 2020-04-10 15:30:45 Wedding Consultant Visit [facility].2114 350.1.13.10 4.2.7.2.686 [id number] [facility] 2020-04-10 14:34:44 2020-04-10 15:04:44 Office Visit Michael Chirinos [facility] 1.20.114 350.1.13.10 4.2.7.2.686 [id number] [facility] 2020-04-10 14:30:00 2020-04-10 14:30:00 Outpatient R MICHAEL CHIRINOS [facility] [id number] [facility] 2020-04-10 00:00:00 2020-04-10 00:00:00 Orders Only Doctor Unassigned, [place] [facility] 1.2840.114 350.1.13.10 4.2.7.2.686 [id number] [facility] History and Physical Notes Date/Time Note Provider Source 2024-02-21 12:47:10 Endoscopy H & P Age: [age] year old Sex: male ASA Class: II Indication: EGD for evaluation of chronic GERD/ abdominal pain on PPI FHx: None Previous abdominal surgeries: Cholecystectomy Last antiplatelet/anitgocaulant use: None Last Endo: None No results found for: "HGB" There are no current results on file for these tests and/or test for 1 year. There are no current results on file for these tests and/or test for 1 year. There are no current results on file for these tests and/or test for 1 year. No past medical history on file. Family history of Colon Cancer/Polyps: no No current facility-administered medications for this encounter. No Known Allergies Social History Socioeconomic History Marital status: Single Tobacco Use Smoking status: Never Smokeless tobacco: Never Mental Status: alert, oriented x3 Chest: Nonlabored breathing, speaks in complete sentences without pauses Cardiovascular: regular rate and rythmn Abdomen: Soft, nontender, nondistended Spleen Tip: non-palpable Hepatomegaly: no Mass: not present Tenderness: no Impression and Plan: Proceed with EGD for evaluation of chronic GERD/ abdominal pain on PPI Education provided to the patient about the procedure. Benefits, risks, alternatives, and likelihood of achieving patient's goals of care discussed. Risks discussed including but not limited to aspiration, infection, bleeding, perforation, missed polyps/lesions, failure to obtain a diagnosis, failure to complete the procedure, cardiovascular complications such as SD, stroke, arrhythmia, and . Informed consent obtained/verified. Zuleyma Syed MD [facility] [employer] [facility] [facility]
[2024-07-03 19:00] LABS: Absolute Lymphocytes (CBC) 0.3 K/uL (0.7-4.9); Absolute Monocytes 0.6 K/uL (0.1-1.3); Absolute Neutrophil 13.3 K/uL (1.8-8.0); Basophils % 0.1 % (0-1.3); Hematocrit 46.8 % (39.6-49.0); Hemoglobin 16.5 g/dL (13.6-17.9); Lymphocytes % 2.5 % (15.3-44.8); MCH 28.8 pg (27.0-35.0); MCHC 35.4 g/dL (32.0-36.0); MCV 81.5 fL (80-100); MPV 8.4 fL (7.6-11.3); Neutrophils % 93.4 % (41.7-73.7); Nucleated Red Blood Cells % 0.1 % (0-0); Platelets 271 thou/uL (152-406); RBC Red Blood Cell Count 5.74 M/uL (4.33-5.43)
[2024-07-03 19:11] LABS: Albumin 3.5 g/dL (3.4-5.0); Albumin/Globulin Ratio 0.8 (1.1-1.8); Anion Gap 10.8 mEq/L (5.0-15.0); Bilirubin Total 0.5 mg/dL (0.2-1.0); Globulin 4.3 g/dL (2.3-3.5); Potassium 3.8 mEq/L (3.5-5.1); Protein, Total 7.8 g/dL (6.4-8.2)
[2024-07-03 19:31] LABS: SARS-CoV-2 Antigen CONTROL BLUE LINE VIS/BG OK; SARS-CoV-2 Antigen Rapid Res Negative (Negative)
[2024-07-03] MEDS ORDERED: NA CHLORIDE 0.9% 1,000 ML ONE (19:46)
[2024-07-03 19:58] LABS: Blood Morphology Comment NOT SEEN (NOT SEEN); Platelet Estimate ADEQ; White Blood Cell Scan OK (OK)
--- NOTE | 2024-07-03 21:00 | RAD REPORT ---
EXAM: Chest Single View HISTORY: CHEST PAIN COMPARISON: 08/22/2021 FINDINGS: LUNGS/PLEURA: The lungs are clear. No pleural effusions or pneumothorax. No pulmonary edema. MEDIASTINUM: The mediastinal silhouette is within normal limits. CARDIAC: The cardiac silhouette is within normal limits. UPPER ABDOMEN: No significant abnormality. BONES: No acute abnormality. LINES/TUBES/OTHER: N/A IMPRESSION: No evidence of acute cardiopulmonary disease.
--- NOTE | 2024-07-03 21:34 | ER ---
Nurse's Notes [facility] Name: Will Hemphill Age: 33 yrs Sex: Male : 1990 Arrival Date: 07/03/2024 Time: 17:50 Bed DX2 Private MD: Diagnosis: Other specified noninfective gastroenteritis and colitis Presentation: 07/03 17:55 Chief complaint: EMS states: called for vomiting and diarrhea, feels better now, given ko1 fluids and zofran by EMS. Coronavirus screen: At this time, the client does not indicate any symptoms associated with coronavirus-19. Ebola Screen: No symptoms or risks identified at this time. Initial Sepsis Screen: Does the patient meet any 2 criteria? No. Patient's initial sepsis screen is negative. Does the patient have a suspected source of infection? No. Patient's initial sepsis screen is negative. Risk Assessment: Do you want to hurt yourself or someone else? Patient reports no desire to harm self or others. Onset of symptoms was July 03, 2024. Care prior to arrival: Medication(s) given: Normal saline infusion, zofran. 17:55 Method Of Arrival: EMS: [facility] ko1 17:55 Acuity: PABLO 3 ko1 Triage Assessment: 18:39 General: Appears in no apparent distress. Behavior is calm, cooperative, appropriate ko1 for age. Pain: Complains of pain in abdomen. Historical: - Allergies: 18:39 No Known Allergies; ko1 - PMHx: 18:39 Irritable bowel syndrome; ko1 - Immunization history:: Adult Immunizations unknown. - Infectious Disease History:: Denies. - Social history:: Smoking status: Patient denies any tobacco usage or history of. Screenin:42 [facility] ED Fall Risk Assessment (Adult) History of falling in the last 3 months, lg3 including since admission No falls in past 3 months (0 pts) Confusion or Disorientation No (0 pts) Intoxicated or Sedated No (0 pts) Impaired Gait No (0 pts) Mobility Assist Device Used No (0 pt) Altered Elimination No (0 pt) Score/Fall Risk Level 0 - 2 = Low Risk Oriented to surroundings, Maintained a safe environment, Educated pt \T\ family on fall prevention, incl call for assistance when getting out of bed, Assessed \T\ reinforced patient's understanding of fall precautions. Abuse screen: Denies threats or abuse. Denies injuries from another. Nutritional screening: No deficits noted. Tuberculosis screening: No symptoms or risk factors identified. Assessment: 21:42 General: Appears in no apparent distress. comfortable, Behavior is calm, cooperative. lg3 Pain: Denies pain. Neuro: No deficits noted. Blak[place] Agitation-Sedation Scale (RASS): 0 - Alert and Calm Level of Consciousness is awake, alert, obeys commands, Oriented to person, place, time, situation. Cardiovascular: No deficits noted. Denies chest pain, shortness of breath, Capillary refill < 3 seconds Clubbing of nail beds is absent JVD is absent Rhythm is sinus tachycardia. Respiratory: No deficits noted. Airway is patent Respiratory effort is even, unlabored, Respiratory pattern is regular, symmetrical. GI: Abdomen is round non-distended, obese, Reports diarrhea, nausea. : No signs and/or symptoms were reported regarding the genitourinary system. EENT: No deficits noted. No signs and/or symptoms were reported regarding the EENT system. Derm: No deficits noted. No signs and/or symptoms reported regarding the dermatologic system. Skin is intact, is healthy with good turgor, Skin is dry, Skin is normal, Skin temperature is warm. Musculoskeletal: No deficits noted. No signs and/or symptoms reported regarding the musculoskeletal system. Circulation, motion, and sensation intact. Range of motion: intact in all extremities. Vital Signs: 18:52 BP 113 / 78; Pulse 115; Resp 16; Temp 98.5; Pulse Ox 96% ; ko1 20:13 BP 115 / 73; Pulse 115; Resp 18; Pulse Ox 97% ; rv1 21:35 BP 111 / 59; Pulse 101; Resp 16; Pulse Ox 97% ; rv1 ED Course: 17:54 Patient arrived in ED. kb 17:54 In[facility]C [facility] kb 17:54 Luke Walden DO is Attending Physician. kb 17:55 Arm band placed on right wrist. Patient placed in waiting room, Patient notified of ko1 wait time. 18:39 Triage completed. ko1 18:47 SARS-COV-2 Antigen Rapid Sent. bc6 18:47 Flu Sent. bc6 18:48 CBC with Diff Sent. bc6 18:48 CMP Sent. bc6 18:48 Lipase Sent. bc6 18:48 Initial lab(s) drawn, by de, sent to lab. COVID swab sent to lab. Flu and/or RSV swab bc6 sent to lab. 20:55 Chest Single View XRAY In Process Unspecified. EDMS 21:42 Patient has correct armband on for positive identification. Warm blanket given. Family lg3 accompanied patient. 21:42 No provider procedures requiring assistance completed. IV discontinued, intact, lg3 bleeding controlled, No redness/swelling at site. Pressure dressing applied. Administered Medications: 20:12 Drug: NS 0.9% IV 1000 ml IV at 1 bolus Per protocol; to be given as a bolus over 60 lg3 minutes Route: IV; Rate: 1 bolus; Site: right forearm; 21:41 Follow up: Response: No adverse reaction; IV Status: Completed infusion; IV Intake: lg3 1000ml Medication: 21:42 VIS not applicable for this client. lg3 Intake: 21:41 IV: 1000ml; Total: 1000ml. lg3 Outcome: 21:33 Discharge ordered by . ni 21:42 Discharged to home ambulatory, with family, lg3 21:42 Condition: stable 21:42 Discharge instructions given to patient, Instructed on discharge instructions, follow up and referral plans. medication usage, Demonstrated understanding of instructions, follow-up care, medications, Prescriptions given X 1, 21:45 Patient left the ED. lg3 Signatures: Dispatcher [employer] EDAK Ingrid Allen, TELEGRAPHIC TYPEWRITER INSTALLER-C TELEGRAPHIC TYPEWRITER INSTALLER-CkXin Kelly RN RN lg3 Blanca Morse, RN RN Edith Cheng rv1 Madeleine Barros 6 Corrections: (The following items were deleted from the chart) 21:36 21:35 BP 111 / 59; Pulse 115bpm; Resp 16bpm; Pulse Ox 97%; rv1 rv1
--- NOTE | 2024-07-03 21:34 | EDPHYS ---
Physician Documentation [facility] Name: Will Hemphill Age: 33 yrs Sex: Male : 1990 Arrival Date: 07/03/2024 Time: 17:50 Bed DX2 Private MD: ED Physician Luke Walden HPI: 07/03 23:19 This 33 yrs old Male presents to ER via EMS with complaints of Vomiting/Diarrhea. kb 23:19 Pt is a 33 year old male who presents for n/v/d that started this morning. Mother has kb similar symptoms. Pt denies abd pain, fever. States he was unable to tolerate anything by mouth. Historical: - Allergies: 18:39 No Known Allergies; ko1 - PMHx: 18:39 Irritable bowel syndrome; ko1 - Immunization history:: Adult Immunizations unknown. - Infectious Disease History:: Denies. - Social history:: Smoking status: Patient denies any tobacco usage or history of. ROS: 23:18 Constitutional: As per HPI kb Exam: 20:38 Constitutional: This is a well developed, well nourished patient who is awake, alert, kb and in no acute distress. Head/Face: Normocephalic, atraumatic. ENT: Moist Mucous membranes Respiratory: Respirations even and unlabored. No increased work of breathing. Talking in full sentences Abdomen/GI: Soft, non-tender. No distention Skin: Warm, dry with normal turgor. Normal color. MS/ Extremity: Pulses equal, no cyanosis. Neurovascular intact. Full, normal range of motion. Neuro: Awake and alert, GCS 15, oriented to person, place, time, and situation. 20:38 Cardiovascular: Rate: tachycardic, 20:38 ECG was reviewed by the Attending Physician. Vital Signs: 18:52 BP 113 / 78; Pulse 115; Resp 16; Temp 98.5; Pulse Ox 96% ; ko1 20:13 BP 115 / 73; Pulse 115; Resp 18; Pulse Ox 97% ; rv1 21:35 BP 111 / 59; Pulse 101; Resp 16; Pulse Ox 97% ; rv1 MDM: 17:54 Medical Screening Exam initiated kb 23:18 Differential diagnosis: Nonspecific abd pain, gastritis, viral gastroenteritis. Data kb reviewed: vital signs, nurses notes. Test considered but Not performed: CT: ct abd considered but pt has no abd pain or tenderness, mother has similar symptoms, symptoms resolved after treatment and is tolerating po intake. Historians other than the Patient: EMS: [facility]. Counseling: I had a detailed discussion with the patient and/or guardian regarding the historical points, exam findings, and any diagnostic results supporting the discharge/admit diagnosis, lab results, the need for outpatient follow up, a family practitioner, to return to the emergency department if symptoms worsen or persist or if there are any questions or concerns that arise at home. 07/03 17:54 Order name: CBC with Diff; Complete Time: 20:01 kb 07/03 17:54 Order name: CMP; Complete Time: 19:19 kb 07/03 17:54 Order name: Lipase; Complete Time: 19:19 kb 07/03 17:54 Order name: Flu; Complete Time: 19:34 kb 07/03 17:54 Order name: SARS-COV-2 Antigen Rapid; Complete Time: 19:34 kb 07/03 19:58 Order name: CBC Smear Scan; Complete Time: 20:01 EDMS 07/03 20:39 Order name: Chest Single View XRAY; Complete Time: 21:12 kb 07/03 20:18 Order name: EKG; Complete Time: 20:18 kb 07/03 17:54 Order name: IV Saline Lock; Complete Time: 18:48 kb 07/03 17:54 Order name: Labs collected and sent; Complete Time: 18:48 kb 07/03 20:02 Order name: PO challenge; Complete Time: 20:17 kb 07/03 20:18 Order name: EKG - Nurse/Tech; Complete Time: 20:38 kb EC:38 Rate is 118 beats/min. Rhythm is regular. QRS [place] is Normal. CA interval is normal at kb 162 msec. QRS interval is normal at 88 msec. QT interval is normal at 426 msec. Administered Medications: 20:12 Drug: NS 0.9% IV 1000 ml IV at 1 bolus Per protocol; to be given as a bolus over 60 lg3 minutes Route: IV; Rate: 1 bolus; Site: right forearm; 21:41 Follow up: Response: No adverse reaction; IV Status: Completed infusion; IV Intake: lg3 1000ml Disposition: 20:39 I was immediately available on-site in the Emergency Department for consultation in the ms3 care of the patient. Disposition Summary: 07/03/24 21:33 Discharge Ordered Notes: Location: Home kb Condition: Stable kb Diagnosis - Other specified noninfective gastroenteritis and colitis kb Followup: kb - With: Emergency Department - When: As needed - Reason: Worsening of condition Followup: kb - With: Private Physician - When: 2 - 3 days - Reason: Recheck today's complaints, Continuance of care, Re-evaluation by your physician Discharge Instructions: - Discharge Summary Sheet kb - Viral Gastroenteritis, Adult, [id number] kb Forms: - Medication Reconciliation Form kb - Antibiotic Education kb - Prescription Opioid Use kb - Patient Portal Instructions kb - Leadership Thank You Letter kb Prescriptions: - Zofran 4 mg Oral tablet - take 1 tablet ORAL route every 6 hours As needed; 12 tablet; Refills: 0, kb Product Selection Permitted Signatures: Dispatcher [employer] EDMS Ingrid Allen, SMITHAC QUENTIN-Xin Gonzalez RN RN lg3 Luke Walden DO DO ms3 Blanca Morse, RN RN ko1
[2024-07-03 21:55] VITALS: TEMP 98.5
[2024-07-03 21:56] VITALS: O2SAT 97
[2024-07-03 21:57] VITALS: BP 111/59
--- NOTE | 2024-07-04 11:29 | EKG ---
Test Date: 2024-07-03 Test Time: 20:36:13 [employer] Nurse: RV MEASUREMENT RESULTS: Intervals: Rate: 118 [place]: 162 QRSD: 88 QT: 304 QTc: 426 [place]: P: 40 [place]: 162 QRS: 67 T: 39 INTERPRETIVE STATEMENTS: Sinus tachycardia Nonspecific ST abnormality Abnormal ECG Compared to ECG 11/18/2020 19:44:11 ST (T wave) deviation now present Sinus rhythm no longer present Electronically Signed On 07-04-24 11:27:38 [employer] by Manuel Zimmerman
== END 2024-07-03 21:45 | disposition home or self-care (01) ==
LOC: ER 17:50
DX: K52.89 Other specified noninfective gastroenteritis and colitis (principal); Z11.52 Encounter for screening for COVID-19
CPT/HCPCS: 93005; 85025; 36415; 83690; 80053; 87804 ×2; 71045; 96360; 99284; 87811; J7030